=== PATIENT | female | born 1985 | race Caucasian/White ===

== ENCOUNTER 2017-10-03 20:56 | Outpatient (CLI) | payer BC ==
--- NOTE | 2017-10-04 09:29 | Ultrasound Report ---
Procedure Date: 10/03/2017 Accession Number: [id number] / [id number] Procedure: US - OB First Trimester CPT Code: FULL RESULT: EXAM: OB First Trimester DATE: 10/03/2017 9:54 PM CLINICAL HISTORY: ENCOUNTER FOR TEST, RESULT POSITIVE TECHNIQUE: Real-time scanning was performed with contact representative static images obtained. COMPARISON: None FINDINGS: The patient reports a last menstrual period of 08/03/2017. There is a single live intrauterine gestation with a heart rate of 148 BPM. The estimated sonographic gestational age is 6 weeks and 6 days. Yolk sac: 3.8 mm [place]-rump length: 9.1 mm Gestational sac: 31.3 mm Note is made of a small 0.9 x 0.8 cm. Gestational fluid collection. Right ovary measures 2.6 x 2.3 x 2.5 cm and is sonographically unremarkable. Left ovary measures 2.8 x 1.9 x 1.7 cm and is sonographically unremarkable. A small amount of free pelvic fluid is seen. IMPRESSION: Live intrauterine gestation with a sonographic age of 6 weeks and 6 days. Small perigestational fluid collection, attention on close interval follow-up.
--- NOTE | 2017-10-07 09:06 | Ultrasound Report ---
Procedure Date: 10/03/2017 Accession Number: [id number] / [id number] Procedure: US - OB Transvaginal CPT Code: FULL RESULT: EXAM: OB Transvaginal DATE: 10/03/2017 9:54 PM CLINICAL HISTORY: ENCOUNTER FOR TEST, RESULT POSITIVE TECHNIQUE: Real-time scanning was performed with admissions representative static images obtained. COMPARISON: None FINDINGS: The patient reports a last menstrual period of 08/03/2017. There is a single live intrauterine gestation with a heart rate of 148 BPM. The estimated sonographic gestational age is 6 weeks and 6 days. Yolk sac: 3.8 mm [place]-rump length: 9.1 mm Gestational sac: 31.3 mm Note is made of a small 0.9 x 0.8 cm. Gestational fluid collection. Right ovary measures 2.6 x 2.3 x 2.5 cm and is sonographically unremarkable. Left ovary measures 2.8 x 1.9 x 1.7 cm and is sonographically unremarkable. A small amount of free pelvic fluid is seen. IMPRESSION: Live intrauterine gestation with a sonographic age of 6 weeks and 6 days. Small perigestational fluid collection, attention on close interval follow-up.
== END 2017-10-03 20:57 | disposition home or self-care (01) ==
LOC: DI 20:56
PROVIDERS: ATTEND Nurse Practitioner Obstetrics & Gynecology
DX: Z32.01 Encounter for pregnancy test, result positive (principal)
CPT/HCPCS: 76801; 76817

== ENCOUNTER 2018-04-21 14:36 | Outpatient (CLI) | payer BC ==
[2018-04-22 13:35] LABS: HEPATITIS C ANTIBODY NON-REACTIVE (NON-REACTIVE); HIV AG/AB 4TH GEN NON-REACTIVE (NON-REACTIVE)
== END 2018-04-21 14:37 | disposition home or self-care (01) ==
LOC: LAB 14:36
PROVIDERS: ATTEND Registered Nurse
DX: Z34.90 Encounter for supervision of normal pregnancy, unspecified, unspecified trimester (principal)
CPT/HCPCS: 36415; 81599; 86592; 86803; 87389

== ENCOUNTER 2018-04-22 08:00 | Outpatient (CLI) | payer BC | END 2018-04-22 23:59 | disposition home or self-care (01) | LOC: LAB.R 08:00 | PROVIDERS: ATTEND Registered Nurse | DX: Z34.90 Encounter for supervision of normal pregnancy, unspecified, unspecified trimester (principal) | CPT/HCPCS: 87491; 87591; 87797 ==

== ENCOUNTER 2018-05-21 14:26 | Outpatient (CLI) | payer BC ==
[2018-05-21 14:39] VITALS: BP 111/63
== END 2018-05-21 15:14 | disposition home or self-care (01) ==
LOC: WFO 14:26 → FBP 14:28 → WFO 15:14
PROVIDERS: ATTEND Obstetrics & Gynecology
DX: O36.8190 Decreased fetal movements, unspecified trimester, not applicable or unspecified (principal); W19.XXXA Unspecified fall, initial encounter
CPT/HCPCS: 99212

== ENCOUNTER 2018-05-24 04:14 | Inpatient (IN) | payer BC ==
[2018-05-24] MEDS ORDERED: SODIUM CHLORIDE FLUSH 0.9% 10 ML SYRINGE IVP PRN (05:12)
[2018-05-24] MEDS ORDERED: LACTATED RINGERS 500 ML IV ONE ×2 (05:17→06:46)
[2018-05-24] MEDS ORDERED: LACTATED RINGERS 1,000 ML IV SCH (06:00)
[2018-05-24 06:11] LABS: BASOPHILS % (AUTO) 0.5 %; EOSINOPHILS % (AUTO) 0.6 %; LYMPHOCYTES # (AUTO) 1.4 10^3/uL (1.5-3.5); LYMPHOCYTES % (AUTO) 19.4 %; MEAN CORPUSCULAR HEMOGLOBIN 29.8 pg (27.0-31.0); MEAN CORPUSCULAR HGB CONC 34.1 g/dL (32.0-36.0); MEAN CORPUSCULAR VOLUME 87.3 fL (81.0-99.0); MEAN PLATELET VOLUME 8.2 fL (7.9-10.8); MONOCYTES # (AUTO) 0.6 10^3/uL (0.0-1.0); MONOCYTES % (AUTO) 8.2 %; NEUTROPHILS # (AUTO) 5.2 10^3/uL (1.5-6.6); NEUTROPHILS % (AUTO) 71.3 %; PLT - PLATELET COUNT 142 10^3/uL (130-450); RED CELL DISTRIBUTION WIDTH 13.6 % (12.0-15.0); WHITE BLOOD COUNT 7.3 x10^3/uL (4.8-10.8)
--- NOTE | 2018-05-24 06:16 | HISTORY & PHYSICAL EXAMINATION ---
Admit History - Visit Reason Visit Reason: Contractions - : 5 Parity: 2 Premature: 0 Ectopic: 0 : 2 Care: positive: [facility] Risk/History: positive: None Complications This : positive: None Smoking Status: Never smoker - Mother's Labs Mother's Blood Type: positive: B Mother's RH: positive: Positive GBS: positive: Group B Strep Positive Rubella Status: positive: Non-immune Review of Systems - Constitutional Constitutional: denies: Fatigue, Fever, Chills, Malaise - Eyes Eyes: denies: Pain, Blurred vision, Spots in vision, Dipolpia - Cardiovascular Cariovascular: denies: Chest pain, Edema - Respiratory Respiratory: denies: Cough, SOB at rest - Gastrointestinal Gastrointestinal: denies: Abdominal pain, Constipation, Diarrhea, Change in bowel habits, Nausea, Vomiting - Genitourinary Genitourinary: denies: Dysuria - Integumentary Integumentary: denies: Rash, Pruritis - Neurological Neurological: denies: Headache - Psychiatric Psychiatric: denies: Depression, Anxiety Physical - Abdominal Exam Vital Signs: Temp Pulse Resp BP Pulse Ox 36.5 C 80 18 127/75 100 05/24/18 04:24 05/24/18 04:24 05/24/18 04:24 05/24/18 04:24 05/24/18 04:24 Contraction Frequency (min/apart): 4 Contraction Intensity: positive: Strong Uterine Resting Tone: positive: Soft - Monitoring Heart Rate Baseline: 125 Strip Review: positive: Category I - Presentation Presentation: positive: Vertex - Vaginal Exam Membranes: positive: Membranes intact Dilation (in cm): 5 Effacement (%): 90 Station: positive: -1 - Speculum Exam Speculum Exam Performed: positive: No Plan for Labor - Plan For Labor I expect patient to be DC'd or transferred within 96 hours.: Yes Plan for Labor: HPI: This 32yo presents to [facility] on 05/24/2018 with c/o spontaneous contractions beginning at 0130 this morning. She denies VB or Lof. SVE upon arrival /-2, vertex. She was admitted to [facility] for expectant management. She has been a patient of [facility] since 34wks gestation when she transferred care. She has had a relatively uneventful other than she was followed closely for suspected IUGR and was referred to [facility] for consultation during her but told there was a dating error and they did not suspect IUGR. She had previous term vaginal deliveries of 8lb baby boys and her deliveries were complicated only by 4th degree perineal lacerations. Dating criteria: LMP unknown (estamited 08/04/2017 - DAYSI 05/11/2018) Initial U/S 10/03/17 @ 6.6wks is disconcordant with LMP dating and DAYSI 05/23/2018 OBHx: G1: 07/14/2014; 41wks; 20hr labor; ; epidural; Male G2: SAB 2014 @ 4 wks - no medication G3: SAB 2015 @ 7wks - D&C G4: 02/16/2017; 41wks, 7hr labor , epidural; male PMHx: Anemia Surgical Hx: Kidney stone removal 2015; D&C 2015 GYNHx: No Hx CYLINDER GRINDER surgeries. No STI Hx. Last pap 10/24/2017-WNL. Family Hx: Anemia-mother; Lung Cancer - grandfather Social Hx: Never smoker, no ETOH or IVDA. to Jamir labs: Blood type B+, antibody neg Hgb 11.9; Hct 35.8; PLT 243 Urine culture negative Hep B neg RPR noeg Rubella immune HIV neg GC/CT neg 28wk labs: Hgb 10.7; PLT 170 1 hour GTT 122 Antibody neg GBS negative Physical Exam: Heart RRR w/o M/G/R Lungs CTAB Abdomen gravid, soft, and nontender. Contractions palpate strong every 4 minutes with soft resting tone FHR baseline 125, moderate variability, + accels, no decels Most recent sve 5/90/-1, vertex, with intact membranes Bilateral LE's no edema Assessment: 32yo @ 40.1wks gestation by 6wk U/S GBS negative Active labor FHR Category I Plan: Admit for expectant management Anesthesia notified for placement of epidural per maternal request Plan AROM when patient comfortable with epidural for augmentation of labor. Anticipate spontaneous vaginal delivery.
--- NOTE | 2018-05-24 06:19 | ANESTHESIA ---
Pre-Anesthesia VS, & Labs - Diagnosis active labor - Procedure vaginal delivery Vital Signs: Temp Pulse Resp BP Pulse Ox 36.5 C 80 18 127/75 100 05/24/18 04:24 05/24/18 04:24 05/24/18 04:24 05/24/18 04:24 05/24/18 04:24 Height 5 ft 4 in Weight (kg) 63.503 kg - NPO Other (patient has not been npo, clear liquids) - Is Patient ?: Yes - Lab Results Current Lab Results: Laboratory Tests 05/24/18 05:33: WBC 7.3, RBC 3.70 L, Hgb 11.0 L, Hct 32.3 L, MCV 87.3, MCH 29.8, MCHC 34.1, RDW 13.6, Plt Count 142, MPV 8.2, Neut # (Auto) 5.2, Lymph # (Auto) 1.4 L, [place] # (Auto) 0.6, Eos # (Auto) 0.0, Baso # (Auto) 0.0, Absolute Nucleated RBC 0.00, Nucleated RBC % 0.0 Fish Bones: 05/24/18 05:33 Home Medications and Allergies Active Medications Lactated Ringer's (Lr) 1,000 mls @ 150 mls/hr IV .Q6H40M SUSAN Sodium Chloride (Normal Saline Flush 0.9%) 10 ml IVP PRN PRN PRN Reason: NEEDED PER PROVIDER ORDERS Sodium Chloride (Normal Saline Flush 0.9%) 10 ml IVP 0100,0900,1700 SUSAN Allergies/Adverse Reactions: Allergies Allergy/AdvReac Type Severity Reaction Status Date / Time No Known Drug Allergies Allergy Verified 05/24/18 06:18 Anes History & Medical History - Anesthetic History Anesthesia Complications: reports: No previous complications - Medical History Cardiovascular: reports: None Pulmonary: reports: None Gastrointestinal: reports: None Urinary: reports: None Neuro: reports: None Musculoskeletal: reports: None Endocrine/Autoimmune: reports: None Smoking Status: Never smoker - Surgical History General: Other (bowel repair as an infant) Exam General: Alert, Oriented x3, Cooperative, No acute distress Dental: WNL Mouth Openin Fingerbreadth Neck Mobility: Normal Mallampati classification: II Thyromental Distance: 4-6 cm Plan Anesthesia Type: Epidural (DPE) Consent for Procedure(s) Verified and Reviewed: Yes Code Status: Attempt Resuscitation ASA classification: 2-Mild systemic disease Is this case an emergency?: No
[2018-05-24] MEDS ORDERED: BUPIVACAINE 0.25% PF 10 ML VIAL ONE (06:20)
[2018-05-24] MEDS ORDERED: fent/BUPIV 2 MCG/0.125% 250 ML EP ONE (06:20)
[2018-05-24] MEDS ORDERED: fent/BUPIV 2 MCG/0.125% 250 ML EP PRN (06:46)
[2018-05-24] MEDS ORDERED: NALOXONE 0.4 MG/ML VIAL IVP PRN (06:46)
[2018-05-24] MEDS ORDERED: ONDANSETRON 4 MG/2 ML VIAL IVP PRN (06:46)
[2018-05-24] MEDS ORDERED: NALBUPHINE 10 MG/ML AMP IVP PRN (06:46)
[2018-05-24] MEDS ORDERED: ePHEDrine 50 MG/ML VIAL IVP PRN (06:46)
[2018-05-24] MEDS ORDERED: ePHEDrine 50 MG/ML VIAL IVP ONE (06:48)
--- NOTE | 2018-05-24 07:06 | PROVIDER PROGRESS NOTE ---
Labor Progress Note - Uterine Monitoring Uterine Monitoring Mode: positive: External toco Contraction Frequency (min/apart): 2-4 Contraction Intensity: positive: Strong Uterine Resting Tone: positive: Soft - Monitoring Monitor Mode: positive: External ultrasound Heart Rate Baseline: 125 Heart Rate Variability: positive: Moderate (6-25 bmp) Accelerations: positive: Present, 15x15 Decelerations: positive: None Strip Review: positive: Category I - Vaginal Exam Dilation (in cm): 7 Effacement (%): 100 Station: 0 Cervical Position: Anterior - Labor Progress Note Labor Progress Note/Additional Text: S: Patient laying in bed comfortably with epidural. She is doing well. Prior to epidural placement she was experiencing increased rectal pressure with contractions. This has started to decrease in intensity. Following placement of epidural she began to have decreased blood pressure which was asymptomatic. She denies N/V, dizziness, or light headedness. Mood is good. supportive at the bedside. O: FHR baseline 125, moderate variability, + accels, no decels. Contractions palpate strong every 2-4 minutes with soft resting tone. SVE 7/100/0, vertex. AROM 0700 - small amount of lightly meconium stained amniotic fluid. A: 32yo @ 40.1wks gestation by 6.6wk U/S Active labor FHT Category I GBS negative P: Continue expectant management Continuous monitoring Anticipate spontaneous vaginal delivery
[2018-05-24] MEDS ORDERED: SODIUM CHLORIDE FLUSH 0.9% 10 ML SYRINGE IVP SCH (09:00)
[2018-05-24] MEDS ORDERED: WITCH HAZEL/GLYCERIN 1 EACH MED..PAD TOP PRN (11:03)
[2018-05-24] MEDS ORDERED: HYDROCORTISONE 1% CREAM 28 GM TUBE PR PRN (11:03)
--- NOTE | 2018-05-24 11:14 | DELIVERY NOTE ---
Delivery Note - Labor Labor: positive: Augmented by ARM - Infant Delivery Method Delivery Method: positive: Spontaneous vaginal delivery - Presentation Presentation: positive: Vertex, KAILEY - left occiput anterior - Nuchal Cord Nuchal Cord: positive: None - Amniotic Fluid Description Amniotic Fluid Description: positive: Moderate meconium - Episiotomy Type Episiotomy Type: positive: None - Laceration Laceration: positive: 1st degree, Perineal - Suture Suture Type: positive: Vicryl Suture Size: positive: 2-0 - Delivery Outcome Delivery Outcome: positive: Livebirth - Totz : positive: Placed in direct skin contact with mother, Stimulated, Warmed, [place] used Totz sex: positive: Female - Cord Cord: positive: 3 vessels - Placenta Placenta: positive: Intact, Spontaneous - Estimated Blood Loss Estimated Blood Loss (in cc): 250 - Post Delivery Events Post Delivery Events: positive: No post delivery events - Delivery Comments (Free Text/Narrative) Delivery Comments (Free Text/Narrative): This 32yo @ 40.1wks gestation by 6.6wk U/S presented at 0500 on 05/24/2018 in active labor. Cervix was 4/80/-2 and vertex with intact membranes. FHR pattern demonstrated Category I pattern throughout labor. She received an epidural per maternal request. AROM occurred at 0658 and was noted to be a small amount of moderate meconium stained amniotic fluid. She progressed to c/c/0 at 1005. Normal of viable female on 05/24/2018 at 1030. No nuchal cord. Apgars were 9/9 at 1 and 5 minutes respectively. The was placed on maternal abdomen, stimulated, dried, and placed skin to skin. The umbilical cord was allowed to stop pulsating at which time it was doubly clamped by CNM and cut by FOB. Cord blood was obtained. Pitocin administered via IV for hemostasis. Placenta delivered spontaneously and intact at 1037. 3VC. EBL 250mL. Uterine fundus firm and there is no excessive bleeding. The perineum, vagina, and cervix were inspected and found to have 1st degree perineal laceration extending bilaterally to lower labial lacerations. Repaired using 2-[address]-1 needle in standard fashion under sterile conditions. Vaginal and rectal examination following the repair was done. Tissues well approximated. Family bonding well. Both mother and baby were left skin to skin and in stable condition.
[2018-05-24] MEDS: IBUPROFEN 800 MG TABLET PO SCH ×3 (12:47→23:46)
[2018-05-24] MEDS: ACETAMINOPHEN 500 MG TABLET PO SCH ×2 (12:48→20:50)
[2018-05-24] MEDS: DOCUSATE SODIUM 100 MG CAPSULE PO SCH (20:50)
[2018-05-25] MEDS: ACETAMINOPHEN 500 MG TABLET PO SCH ×2 (05:36→14:01)
[2018-05-25] MEDS: IBUPROFEN 800 MG TABLET PO SCH ×2 (05:37→14:01)
[2018-05-25] MEDS: DOCUSATE SODIUM 100 MG CAPSULE PO SCH (08:00)
--- NOTE | 2018-05-25 10:38 | Discharge Plan ---
Discharge Plan Disposition: 01 Home, Self Care Condition: Good Diet: Regular Activity Restrictions: No Restrictions Shower Restrictions: No Driving Restrictions: No Weight Bearing: Full Weight No Smoking: If you smoke, Please STOP! Call for help. Follow-up with: Marilyn Murillo CNM, ARNP [Provider Admit Priv/Credential] -
--- NOTE | 2018-05-25 10:42 | PROVIDER PROGRESS NOTE ---
Subjective - Subjective Subjective: FINAL PROGRESS NOTE: S: Bonding well with baby. without difficulty. Bleeding decreased and is light. Pain well controlled with oral medications. They strongly desire to go home today. supportive at the bedside. O: BP 100/69, HR 69, RR 14, T 36.5 Heart RRR w/o M/G/R, lungs CTAB, abdomen soft and nontender with fundus firm at U-1. Perineum intact with mild edema. Bilateral LE's no edema. Mood is good. A: 32yo [id number] -->P3 s/p TSVD of viable female 1st degree perineal laceration - intact P: Reviewed self care and warning s/sx. F/u in 1 week for support visit PRN. F/u in 3 week for routine visit or sooner PRN. Advised continuation of PNV while Continue ibuprofen 800mg 1 tab PO q 8 hours PRN pain. Pt and verbalized understanding and agree to above plan. They deny further questions or concerns today. Objective - Vital Signs/Intake & Output Vital Signs: Vital Signs x48h Temp Pulse Resp BP 05/25/18 08:03 36.5 C 69 14 100/69 Intake & Output: Intake & Output 05/22/18 05/23/18 05/24/18 05/25/18 23:59 23:59 23:59 23:59 Intake Total 1000 Output Total 2300 Balance -1300 - Lab Results Fish Bones: 05/24/18 05:33
[2018-05-25 14:15] VITALS: BP 104/62
--- NOTE | 2018-05-25 14:18 | Labor Flowsheet ---
Labor Flowsheet Datetime Report Generated by CPN: 05/25/2018 14:17 Datetime: 05/25/2018 13:25 VITAL SIGNS NBP Sys/Olivia/Mean (mmHg): 104 : 62 : 73 Pulse: 75 LaborFlag: Labor Datetime: 05/24/2018 11:29 Membranes Ruptured Date/Time: 05/24/2018 06:58 Datetime: 05/24/2018 10:30 UTERINE ACTIVITY Monitor Mode: External Frequency (min): 135 Quality: Strong Duration (sec): 60-80 Pattern: Normal: <= 5 Contractions in 10 Minutes Resting Tone (Palpate): Relaxed Contraction Comments: patient pushes to delivery ASSESSMENT A Monitor Mode: External US FHR Baseline Rate : 130 Variability: Moderate 6-25 bpm Accelerations: None Decelerations: Variable Category: Category II Comments: delivery of viable female infant apgars 9/9 Datetime: 05/24/2018 10:12 Actions for Decelerations: Oxygen Applied Datetime: 05/24/2018 10:05 VAGINAL EXAM Dilatation (cm): 10.0 Exam by: CNM Lidia Oxygen Amount (LPM): 10 Datetime: 05/24/2018 09:52 Communication Comments: Provider called and updated on variable declerations, unchanged SVE. Rigger Third requests for provider to come to unit for standyby. Provider states she's on her way to unit. Datetime: 05/24/2018 09:46 Vaginal Exam Comments: SVE indicated related to decelerations and patient report of increased press ure. SVE unchanged from previous exam. Datetime: 05/24/2018 09:33 Vital Sign Comments: pulse oximetry off per patient request. Datetime: 05/24/2018 09:30 Monitor Interventions for FHR: Ultrasound Adjusted Effacement (%): 100 Station: 0 Membrane Status: Ruptured Amniotic Fluid Color: Light Meconium Amniotic Fluid Amount: Small Amniotic Fluid Odor: None Vaginal Bleeding: None Datetime: 05/24/2018 09:28 Patient Position/Activity: Left Extreme Datetime: 05/24/2018 09:24 SpO2 (%): 100 Datetime: 05/24/2018 09:19 I/O Interventions: Straight Cath (ml) @ 700 Datetime: 05/24/2018 08:17 PATIENT CARE IV/Blood Work: IV bolus completed. 500cc infused. Datetime: 05/24/2018 08:11 Cervix, Consistency: Soft Cervix, Position: Midposition Datetime: 05/24/2018 07:54 ANESTHESIA Anesthesia Plans: Epidural Anesthesia Level Check: T9 Datetime: 05/24/2018 07:47 Patient Care Comments: position change to extreme right side. Datetime: 05/24/2018 07:30 PAIN Pain Scale: 4 Pain Presence: Intermittent Pain Goal: 5 Pain Relief Measures: Patient states she's aware of the PCEA option but does not feel the need to u se it at this time. Datetime: 05/24/2018 07:26 Temperature (C): 36.8 Datetime: 05/24/2018 06:58 Membranes Rupture Method: Artificial Membrane Comments: AROM by A Lidia CNM Datetime: 05/24/2018 06:51 MEDICATIONS Magnesium/Antihypertensives: Ephedrine IV (mg) @ 5 Datetime: 05/24/2018 06:31 Epidural Procedure: Loading Dose Datetime: 05/24/2018 06:29 Respirations: 18 Datetime: 05/24/2018 06:20 PROCEDURE TIME OUT Procedure Verify: Correct Patient Identity; Accurate Procedure Consent Form; Agreement on Procedure to be Done; Correct Patient Position Epidural Positioning: Sitting Datetime: 05/24/2018 06:15 COMMUNICATION Communication: Provider at Bedside
--- NOTE | 2018-05-25 15:16 | DISCHARGE SUMMARY ---
Physician: BANDAR Martínez DATE OF ADMISSION: 05/24/2018 DATE OF DISCHARGE: 05/25/2018 DIAGNOSES ON ADMISSION 1. A 32-year-old G5, P2-0-2-2, at 40.1 weeks' gestation. 2. Group B streptococcus negative. 3. Active labor. DIAGNOSES ON DISCHARGE 1. A 32-year-old G5, P3-0-2-3, status post spontaneous vaginal delivery on 05/24/2018. 2. Normal recovery. 3. . HISTORY OF PRESENT ILLNESS: This is a patient of [facility] who presented on 019 with complaints of contractions. Cervix was 4 cm dilated, 80% effaced and -2 station in a vertex position with intact membranes. She received an epidural per maternal request. AROM occurred at 0658 and was noted to be a small amount of moderate meconium stained amniotic fluid. She progres sed to spontaneously deliver a viable female infant on 05/24/2018 at 1030. Apgars were 9 and 9 at 1 and 5 minutes respectively. EBL 250 mL. The patient had a first-degree perineal laceration, which w as repaired using a 2-0 Vicryl in the usual fashion under sterile conditions. She has been doing well in her course. She is ambulating and tolerating a regular diet. She is urinating without difficulty and her lochia is normal. Her pain is well controlled with oral medications. She will be discharged home today on day #1 with instructions to continue pr enatal vitamin while and take 800 mg p.o. ibuprofen q.8 hours as needed for pain. She intends to follow up with myself at [facility] in 3 weeks for routine visi t. She has been given precautions to call if she has any worsening fevers, chills, abdominal pain, i ncreased bleeding or foul-smelling vaginal lochia. TD: 05/25/2018 10:51
== END 2018-05-25 13:30 | disposition home or self-care (01) | DRG 807 ==
LOC: WFO 04:14 → FBP 04:15 → WFO 04:55 → FBP 04:56
PROVIDERS: ADMIT Nurse Practitioner Obstetrics & Gynecology; ATTEND Nurse Practitioner Obstetrics & Gynecology
PROC: 10E0XZZ Delivery of Products of Conception, External Approach (ICD-10-PCS; principal; 2018-05-24)
PROC: 0HQ9XZZ Repair Perineum Skin, External Approach (ICD-10-PCS; 2018-05-24)
PROC: 10907ZC Drainage of Amniotic Fluid, Therapeutic from Products of Conception, Via Natural or Artificial Opening (ICD-10-PCS; 2018-05-24)
DX: O99.02 Anemia complicating childbirth (principal); Z37.0 Single live birth; Z3A.40 40 weeks gestation of pregnancy; O70.0 First degree perineal laceration during delivery; O77.0 Labor and delivery complicated by meconium in amniotic fluid
CPT/HCPCS: 85025; 99213; A9270; J7120

== ENCOUNTER 2019-10-08 08:11 | Outpatient (CLI) | payer BC ==
--- NOTE | 2019-10-08 12:33 | Ultrasound Report ---
PROCEDURE: OB First Trimester INDICATIONS: POSITIVE TEST OUTSIDE/PRIOR DATING DATA: Last menstrual period (LMP): 08/13/2019. LMP-based estimated date of delivery (DASYI): 05/19/2020. First dating scan (date and location): . Estimated date of delivery (DAYSI) from first dating scan: 05/31/2020. TECHNIQUE: Real-time scanning was performed of the fetus and maternal pelvic organs, with image documentation. COMPARISON: None FINDINGS: Embryo: Single live intrauterine is identified with crown-rump length measuring 5 mm corre sponding to 6 weeks 2 days. heart rate is identified at 123 bpm. A small focus of subchorionic hemorrhage is noted measuring 2.0 x 0.8 x 1.7 cm. Measurement variability in dating: +/- 4 weeks by LMP, +/- 7 days by mean sac diameter (use before 6 weeks gestation if crown-rump length not able to be measured), +/- 5 days by crown-rump length (6-12 weeks gestation). Maternal organs: Ovaries demonstrate right ovarian cyst measuring 1.9 x 1.2 x 1.1 cm.. Limited imag es through the kidneys demonstrate no hydronephrosis. IMPRESSION: 1. Single live intrauterine with ultrasound gestational age of 6 weeks 2 days corresponding to ultrasound DAYSI of 05/31/2020. 2. Recommend follow up study at 20-22 weeks for dates and anatomy. Reviewed by: Lucina Hartmann MD on 10/08/2019 12:31 PM PDT Approved by: Lucina Hartmann MD on 10/08/2019 12:31 PM PDT Station ID: [id number]
== END 2019-10-08 08:12 | disposition home or self-care (01) ==
LOC: DI 08:11
PROVIDERS: ATTEND Obstetrics & Gynecology
DX: Z32.01 Encounter for pregnancy test, result positive (principal)
CPT/HCPCS: 76801

== ENCOUNTER 2019-10-12 15:48 | Outpatient (CLI) | payer BC ==
[2019-10-12 16:19] LABS: HGB - HEMOGLOBIN 11.5 g/dL (12.0-16.0); MEAN CORPUSCULAR HEMOGLOBIN 29.6 pg (27.0-31.0); MEAN CORPUSCULAR HGB CONC 32.4 g/dL (32.0-36.0); MEAN CORPUSCULAR VOLUME 91.5 fL (81.0-99.0); MEAN PLATELET VOLUME 9.3 fL (7.9-10.8); RED BLOOD COUNT 3.88 10^6/uL (4.20-5.40); RED CELL DISTRIBUTION WIDTH 12.7 % (12.0-15.0); WHITE BLOOD COUNT 7.8 x10^3/uL (4.8-10.8)
--- NOTE | 2019-10-12 17:13 | Ultrasound Report ---
PROCEDURE: OB First Trimester INDICATIONS: THREATENED , ANTEPARTUM TECHNIQUE: Real-time scanning was performed of the fetus and maternal pelvic organs, with image documentation. COMPARISON: 10/08/2019 FINDINGS: Previously seen gestational sac is no longer identified. There is a tiny focal hypodense region in th e uterine fundus posteriorly which measures only 5 mm, compared with the gestational sac measuring up to 3 cm previously. There is no pole or heart tones identified, both identified previous ly. Echogenic material fills the uterine cavity. Both ovaries are normal in appearance. IMPRESSION: No evidence of viable intrauterine at this time. Previously seen gestational sac is no long er demonstrated. Previously seen pole and heart tones are likewise no longer present. Fin dings are consistent with a completed report nearly completed . Reviewed by: Nj De Guzman MD on 10/12/2019 5:12 PM PDT Approved by: Nj De Guzman MD on 10/12/2019 5:12 PM PDT Station ID: [id number]
== END 2019-10-12 15:49 | disposition home or self-care (01) ==
LOC: DI 15:48
PROVIDERS: ATTEND Obstetrics & Gynecology
DX: O20.0 Threatened abortion (principal)
CPT/HCPCS: 36415; 76801; 76817; 84702; 85027; 86900; 86901

== ENCOUNTER 2020-01-13 12:25 | Outpatient (CLI) | payer BC ==
[2020-01-13 16:56] LABS: MUDS CUTOFF CONCENTRATIONS CUTOFF CONC BELOW:
[2020-01-13 17:06] LABS: BILIRUBIN,URINE NEGATIVE (NEGATIVE); GLUCOSE, URINE (UA) NEGATIVE (NEGATIVE); KETONES,URINE (UA) NEGATIVE (NEGATIVE); LEUKOCYTE ESTERASE, URINE NEGATIVE (NEGATIVE); NITRITE,URINE NEGATIVE (NEGATIVE); OCCULT BLOOD,URINE NEGATIVE (NEGATIVE); PH,URINE 6.5 PH (5.0-7.5); PROTEIN,URINE NEGATIVE (NEGATIVE); UROBILINOGEN,URINE 0.2 (NORMAL) E.U./dL (NORMAL)
[2020-01-13 17:09] LABS: CLARITY,URINE CLEAR (CLEAR)
[2020-01-13 17:15] LABS: AMPHETAMINE SCREEN,URINE NEGATIVE (NEGATIVE); BENZODIAZEPINES SCREEN, URINE NEGATIVE (NEGATIVE); COCAINE SCREEN URINE NEGATIVE (NEGATIVE); METHADONE SCREEN, URINE NEGATIVE (NEGATIVE); METHAMPHETAMINES SCREEN, URINE NEGATIVE (NEGATIVE); OPIATE SCREEN, URINE NEGATIVE (NEGATIVE); OXYCODONE SCREEN, URINE NEGATIVE (NEGATIVE); PROPOXYPHENE SCREEN, URINE NEGATIVE (NEGATIVE); TRICYCLIC ANTIDEPRESSANT,URINE NEGATIVE (NEGATIVE)
[2020-01-13 17:21] LABS: BACTERIA,URINE Rare /HPF (None Seen); RBC,URINE None Seen /HPF (0-5); SQUAMOUS EPITHELIAL CELL,UR FEW Squamous (<= Few)
== END 2020-01-13 23:59 | disposition home or self-care (01) ==
LOC: LAB.R 12:25
PROVIDERS: ATTEND Advanced Practice Midwife
DX: Z32.01 Encounter for pregnancy test, result positive (principal)
CPT/HCPCS: 80306; 81001; 87086

== ENCOUNTER 2020-02-12 08:57 | Outpatient (CLI) | payer BC ==
--- NOTE | 2020-02-12 13:06 | Ultrasound Report ---
PROCEDURE: OB First Trimester INDICATIONS: POS PREG TEST OUTSIDE/PRIOR DATING DATA: Last menstrual period (LMP): 12/06/2019. LMP-based estimated date of delivery (DAYSI): 09/11/2020. First dating scan (date and location): 02/12/2020. Estimated date of delivery (DAYSI) from first dating scan: 09/11/2020. TECHNIQUE: Real-time scanning was performed of the fetus and maternal pelvic organs, with image documentation. COMPARISON: None FINDINGS: Embryo: The uterine fundus there is a 4.6 m gestational sac containing an embryo measuring 2.9 cm in crown-rump length. This corresponds to a composite gestational age of 9 weeks 5 days. heart ra te is measured at 185 bpm. Measurement variability in dating: +/- 4 weeks by LMP, +/- 7 days by mean sac diameter (use before 6 weeks gestation if crown-rump length not able to be measured), +/- 5 days by crown-rump length (6-12 weeks gestation). Maternal organs: Ovaries unremarkable. Limited images through the kidneys demonstrate no hydronephr osis. IMPRESSION: Single live intrauterine gestation with average ultrasound age of 9 weeks 5 days. Reviewed by: Nj De Guzman MD on 02/12/2020 12:04 PM [facility] Approved by: Nj De Guzman MD on 02/12/2020 12:04 PM [facility] Station ID: [id number]
== END 2020-02-12 08:58 | disposition home or self-care (01) ==
LOC: DI 08:57
PROVIDERS: ATTEND Advanced Practice Midwife
DX: Z32.01 Encounter for pregnancy test, result positive (principal)

== ENCOUNTER 2020-03-17 14:37 | Outpatient (CLI) | payer BC ==
[2020-03-17 15:12] LABS: BASOPHILS % (AUTO) 0.6 %; EOSINOPHILS # (AUTO) 0.4 10^3/uL (0.0-0.7); EOSINOPHILS % (AUTO) 5.1 %; HGB - HEMOGLOBIN 11.5 g/dL (12.0-16.0); LYMPHOCYTES # (AUTO) 1.8 10^3/uL (1.5-3.5); MEAN CORPUSCULAR HEMOGLOBIN 30.3 pg (27.0-31.0); MEAN CORPUSCULAR HGB CONC 33.6 g/dL (32.0-36.0); MEAN PLATELET VOLUME 9.2 fL (7.9-10.8); MONOCYTES # (AUTO) 0.3 10^3/uL (0.0-1.0); MONOCYTES % (AUTO) 4.8 %; NEUTROPHILS # (AUTO) 4.5 10^3/uL (1.5-6.6); NEUTROPHILS % (AUTO) 63.2 %; PLT - PLATELET COUNT 187 10^3/uL (130-450); RED CELL DISTRIBUTION WIDTH 13.2 % (12.0-15.0); WHITE BLOOD COUNT 7.1 x10^3/uL (4.8-10.8)
[2020-03-18 12:07] LABS: HEPATITIS C ANTIBODY NON-REACTIVE (NON-REACTIVE)
[2020-03-18 12:21] LABS: HEPATITIS B SURFACE ANTIGEN NON-REACTIVE (NON-REACTIVE)
[2020-03-18 15:14] LABS: HIV AG/AB 4TH GEN NON-REACTIVE (NON-REACTIVE)
== END 2020-03-17 14:38 | disposition home or self-care (01) ==
LOC: LAB 14:37
PROVIDERS: ATTEND Advanced Practice Midwife
DX: Z34.80 Encounter for supervision of other normal pregnancy, unspecified trimester (principal)
CPT/HCPCS: 36415; 81599; 85025; 86592; 86762; 86787; 86803; 86850; 86900; 86901; 87340; 87389

== ENCOUNTER 2020-04-20 08:00 | Outpatient (CLI) | payer BC ==
[2020-04-20 20:25] LABS: CANDIDA KRUSEI DNA NEGATIVE (NEGATIVE); TRICHOMONAS VAGINALIS DNA NEGATIVE (NEGATIVE)
[2020-04-20 20:26] LABS: CANDIDA GROUP DNA POSITIVE (NEGATIVE)
== END 2020-04-20 23:59 | disposition home or self-care (01) ==
LOC: LAB.R 08:00
PROVIDERS: ATTEND Nurse Practitioner Obstetrics & Gynecology
DX: N76.0 Acute vaginitis (principal)
CPT/HCPCS: 87661; 87801

== ENCOUNTER 2020-04-24 08:40 | Outpatient (CLI) | payer BC ==
--- NOTE | 2020-04-24 13:33 | Ultrasound Report ---
PROCEDURE: OB Detailed Eval INDICATIONS: SUPERVISION OF NORMAL OUTSIDE/PRIOR DATING DATA: Last menstrual period (LMP): 12/06/2019. LMP-based estimated date of delivery (DAYSI): 09/11/2020. First dating scan (date and location): 02/12/2020. Estimated date of delivery (DAYSI) from first dating scan: 09/11/2020. TECHNIQUE: Real-time scanning was performed of the fetus, with image documentation and biometric measurements. Endovaginal scanning: No COMPARISON: 02/12/2020 ultrasound examination FINDINGS: General: A single living intrauterine gestation is present. Presentation: Transverse Placenta: Placental position is anterior, without previa. Amniotic fluid index: 12.5 cm, 29th percentile for gestational age. heart rate: 144 beats per minute. Maternal cervical canal: 3.5 cm long; normal length is 2.5 cm or more. biometrics: Biparietal diameter: 45 mm; 19 weeks 5 days Head circumference: 177 mm; 20 weeks 1 day Abdominal circumference: 152 mm; 20 weeks 3 days Femur length: 33 mm; 20 weeks 2 days Estimated gestational age from initial scan: 20 weeks 0 days Composite gestational age from present scan: 20 weeks 1 day Estimated weight and percentile: 343 g, which is at the 62nd percentile for gestational age Measurement variability in biometric dating: +/- 10 days from 12-20 weeks gestation, +/- 2 weeks from 20-30 weeks gestation, +/- 3 weeks at 30 weeks gestation or later. Anatomic survey: Neuro: Ventricles are normal at less than 10 mm. Cisterna magna is normal at 3-11 mm. Cerebellum i s normal in size and morphology. Nuchal skin fold: Normal at less than 6 mm between 14 and 20 weeks gestational age. Face: Nose and lips, facial profile are normal. Spine: No evidence for spina bifida. Heart: 4-chambered heart is present, with normal ventricular outflow tracts. Diaphragm: Diaphragm is intact. Stomach: Left-sided stomach is present. Kidneys: No hydronephrosis. Normal is less than 5 mm in 2nd trimester, less than 7 mm in 3rd trimester. Cord: 3 vessel cord has orthotopic insertion. Bladder: Normal in size. Extremities: All 4 extremities are visualized. IMPRESSION: 1. Single living intrauterine gestation. 2. Normal survey of anatomy. Reviewed by: Veronica Ackerman MD on 04/24/2020 12:32 PM [facility] Approved by: Veronica Ackerman MD on 04/24/2020 12:32 PM [facility] Station ID: [id number]
== END 2020-04-24 08:41 | disposition home or self-care (01) ==
LOC: DI 08:40
PROVIDERS: ATTEND Advanced Practice Midwife
DX: Z34.82 Encounter for supervision of other normal pregnancy, second trimester (principal)

== ENCOUNTER 2020-06-14 13:48 | Outpatient (CLI) | payer BC ==
[2020-06-14 15:07] LABS: HCT - HEMATOCRIT 30.6 % (37.0-47.0); HGB - HEMOGLOBIN 10.1 g/dL (12.0-16.0); MEAN CORPUSCULAR HEMOGLOBIN 30.4 pg (27.0-31.0); MEAN CORPUSCULAR VOLUME 92.2 fL (81.0-99.0); MEAN PLATELET VOLUME 9.2 fL (7.9-10.8); RED BLOOD COUNT 3.32 10^6/uL (4.20-5.40); RED CELL DISTRIBUTION WIDTH 13.1 % (12.0-15.0); WHITE BLOOD COUNT 7.6 x10^3/uL (4.8-10.8)
== END 2020-06-14 13:49 | disposition home or self-care (01) ==
LOC: LAB 13:48
PROVIDERS: ATTEND Advanced Practice Midwife
DX: Z34.80 Encounter for supervision of other normal pregnancy, unspecified trimester (principal); Z36.89 Encounter for other specified antenatal screening
CPT/HCPCS: 36415; 82950; 85027

== ENCOUNTER 2020-08-16 08:00 | Outpatient (CLI) | payer BC | END 2020-08-16 23:59 | LOC: LAB.WC 08:00 | PROVIDERS: ATTEND Advanced Practice Midwife | DX: Z36.85 Encounter for antenatal screening for Streptococcus B (principal) | CPT/HCPCS: 87797 ==

== ENCOUNTER 2020-09-15 15:17 | Outpatient (CLI) | payer BC ==
[2020-09-15 15:41] VITALS: BP 115/58
--- NOTE | 2020-09-15 16:21 | PROVIDER PROGRESS NOTE ---
- HPI Chief Complaint: Decreased movement Current : Vital Signs Temperature 37.1 C 09/15/20 15:39 Heart Rate 71 09/15/20 15:39 Respiratory Rate 16 09/15/20 15:39 Blood Pressure 115/58 L 09/15/20 15:39 Temperature 37.1 C 09/15/20 15:39 Heart Rate 71 09/15/20 15:39 Respiratory Rate 16 09/15/20 15:39 Blood Pressure 115/58 L 09/15/20 15:39 O2 Saturation - Procedures OB Procedure Performed: NST Diagnosis/Indication for NST: Decreased movement Service Date of procedure: 09/15/20 - Plan Plan: S: Rdaha presents today to [facility] with c/o decreased movement. She states she is still feeling the baby move but the movements are slower and definitely less than they had been previously. O: NST performed 09/15/2020 NST read 09/15/2020 NST reactive. FHR basleine 125, moderate variability, + accels, no decels No contractions appreciated via tocometry A: 34yo @ 40.4wks gestation GBS neg FHR Category I P: Pt feels very reassured after the NST and wishes to be discharged home. Reviewed warning s/sx and when to present. Pt released home with precautions. Return for IOL 09/20/2020 @ 0730 or sooner PRN. Pt verbalized understanding and agrees to above plan. She denies further questions or concerns at this time. FINAL DIAGNOSIS: Decreased movement, third trimester
== END 2020-09-15 16:15 | disposition home or self-care (01) ==
LOC: WFO 15:17 → FBP 15:23 → WFO 16:15
PROVIDERS: ATTEND Nurse Practitioner Obstetrics & Gynecology
DX: O36.8130 Decreased fetal movements, third trimester, not applicable or unspecified (principal); Z3A.40 40 weeks gestation of pregnancy
CPT/HCPCS: 59025

== ENCOUNTER 2020-09-17 08:12 | Inpatient (IN) | payer BC ==
[2020-09-17] MEDS ORDERED: miSOPROStoL 200 MCG TABLET BC PRN (08:34)
[2020-09-17] MEDS ORDERED: LIDOCAINE-MPF 1% 30 ML VIAL ID PRN (08:34)
[2020-09-17] MEDS ORDERED: ONDANSETRON 4 MG/2 ML VIAL IVP PRN (08:34)
[2020-09-17] MEDS ORDERED: fentaNYL 100 MCG/2 ML VIAL IVP PRN (08:34)
[2020-09-17] MEDS ORDERED: TRANEXAMIC ACID IN NACL 1,000 MG/100 ML BAG IV PRN (08:34)
[2020-09-17] MEDS ORDERED: METHYLERGONOVINE 0.2 MG/ML VIAL IM PRN (08:34)
[2020-09-17] MEDS ORDERED: OXYTOCIN 10 UNIT/ML VIAL IM PRN (08:34)
[2020-09-17] MEDS ORDERED: OXYTOCIN/SODIUM CHLORIDE 500 ML IV PRN (08:34)
[2020-09-17] MEDS ORDERED: METOCLOPRAMIDE 10 MG/2 ML VIAL IVP PRN (08:34)
[2020-09-17] MEDS ORDERED: CARBOPROST TROMETHAMINE 250 MCG/ML AMP IM PRN (08:34)
[2020-09-17] MEDS ORDERED: SODIUM CHLORIDE FLUSH 0.9% 10 ML SYRINGE IVP PRN (08:34)
[2020-09-17] MEDS: LACTATED RINGERS 1,000 ML IV SCH ×2 (08:45→12:15)
[2020-09-17] MEDS ORDERED: ROPIVACAINE 0.2% 200 MG/100 ML BAG EP ONE (08:59)
[2020-09-17] MEDS ORDERED: ACETAMINOPHEN 325 MG TABLET PO SCH (09:00)
[2020-09-17 09:19] LABS: BASOPHILS # (AUTO) 0.1 10^3/uL (0.0-0.1); BASOPHILS % (AUTO) 0.7 %; EOSINOPHILS # (AUTO) 0.2 10^3/uL (0.0-0.7); EOSINOPHILS % (AUTO) 1.7 %; HCT - HEMATOCRIT 33.1 % (37.0-47.0); HGB - HEMOGLOBIN 10.3 g/dL (12.0-16.0); LYMPHOCYTES # (AUTO) 1.4 10^3/uL (1.5-3.5); LYMPHOCYTES % (AUTO) 15.7 %; MEAN CORPUSCULAR HEMOGLOBIN 26.7 pg (27.0-31.0); MEAN CORPUSCULAR HGB CONC 31.1 g/dL (32.0-36.0); MEAN CORPUSCULAR VOLUME 85.8 fL (81.0-99.0); MEAN PLATELET VOLUME 11.4 fL (7.9-10.8); MONOCYTES # (AUTO) 0.6 10^3/uL (0.0-1.0); MONOCYTES % (AUTO) 7.1 %; NEUTROPHILS # (AUTO) 6.7 10^3/uL (1.5-6.6); NEUTROPHILS % (AUTO) 73.8 %; PLT - PLATELET COUNT 170 10^3/uL (130-450); RED BLOOD COUNT 3.86 10^6/uL (4.20-5.40); RED CELL DISTRIBUTION WIDTH 13.6 % (12.0-15.0)
[2020-09-17] MEDS ORDERED: ePHEDrine 50 MG/ML VIAL IVP PRN (10:16)
[2020-09-17] MEDS ORDERED: ROPIVACAINE 0.2% 200 MG/100 ML BAG EP PRN (10:16)
[2020-09-17] MEDS ORDERED: NALOXONE 0.4 MG/ML VIAL IVP PRN (10:16)
--- NOTE | 2020-09-17 10:22 | ANESTHESIA ---
Pre-Anesthesia VS, & Labs - Diagnosis active labor - Procedure vaginal delivery Vital Signs: Temp Pulse Resp BP Pulse Ox 36.9 C 74 16 112/68 09/17/20 09:17 09/17/20 09:17 09/17/20 09:17 09/17/20 09:17 Height: 5 ft 4 in Weight (kg): 68.039 kg Body Mass Index: 25.7 BMI Classification: Overweight - NPO Other (labor, clear liquids) - Is Patient ?: Yes - Lab Results Current Lab Results: Laboratory Tests 09/17/20 09:05: WBC 9.0, RBC 3.86 L, Hgb 10.3 L, Hct 33.1 L, MCV 85.8, MCH 26.7 L, MCHC 31.1 L, RDW 13.6, Plt Count 170, MPV 11.4 H, Neut # (Auto) 6.7 H, Lymph # (Auto) 1.4 L, [place] # (Auto) 0.6, Eos # (Auto) 0.2, Baso # (Auto) 0.1, Absolute Nucleated RBC 0.00, Nucleated RBC % 0.0 Fish Bones: 09/17/20 09:05 Home Medications and Allergies Active Medications Acetaminophen (Acetaminophen 325 Mg Tablet) 650 mg PO Q6H SUSAN Carboprost Tromethamine (Carboprost Tromethamine 250 Mcg/Ml Amp) 250 mcg IM Q15M PRN PRN Reason: Step 4: Hemorrhage protocol Stop: 09/22/20 08:34 Fentanyl (Fentanyl 100 Mcg/2 Ml Vial) 50 mcg IVP Q1H PRN PRN Reason: PAIN Oxytocin/Sodium Chloride (Pitocin/Sodium Chloride) 500 mls @ 999 mls/hr IV PRN PRN; Protocol PRN Reason: POST- HEMORR PREVENTION Stop: 09/22/20 08:34 Tranexamic Acid (Tranexamic 1,000 Mg/100ml-Nacl) 1,000 mg in 100 mls @ 600 mls/hr IV .ONCE PRN PRN Reason: EBL >1200mL and within 3hr Stop: 09/22/20 08:34 Lactated Ringer's (Lr) 1,000 mls @ 150 mls/hr IV .Q6H40M SUSAN Lidocaine HCl (Lidocaine-Mpf 1% 30 Ml Vial) 30 ml ID .ONCE PRN PRN Reason: PERINEAL REPAIR Stop: 09/22/20 08:34 Methylergonovine Maleate (Methylergonovine 0.2 Mg/Ml Vial) 0.2 mg IM .ONCE PRN PRN Reason: Step 2: Hemorrhage protocol Stop: 09/22/20 08:34 Metoclopramide HCl (Metoclopramide 10 Mg/2 Ml Vial) 10 mg IVP Q6H PRN PRN Reason: Nausea / Vomiting Misoprostol (Misoprostol 200 Mcg Tablet) 800 mcg BC .ONCE PRN PRN Reason: Step 3: Hemorrhage protocol Stop: 09/22/20 08:34 Ondansetron HCl (Ondansetron 4 Mg/2 Ml Vial) 4 mg IVP Q4H PRN PRN Reason: Nausea / Vomiting Oxytocin (Oxytocin 10 Unit/Ml Vial) 10 unit IM .ONCE PRN PRN Reason: Step one: If no IV access Stop: 09/22/20 08:34 Sodium Chloride (Sodium Chloride Flush 0.9% 10 Ml Syringe) 10 ml IVP PRN PRN PRN Reason: NEEDED PER PROVIDER ORDERS Sodium Chloride (Sodium Chloride Flush 0.9% 10 Ml Syringe) 10 ml IVP 0100,0900,1700 SUSAN Allergies/Adverse Reactions: Allergies Allergy/AdvReac Type Severity Reaction Status Date / Time No Known Drug Allergies Allergy Verified 05/24/18 06:18 Anes History & Medical History - Anesthetic History Anesthesia Complications: reports: No previous complications - Medical History Cardiovascular: reports: None Pulmonary: reports: None Gastrointestinal: reports: None Urinary: reports: None Neuro: reports: None Musculoskeletal: reports: None Endocrine/Autoimmune: reports: None Blood Disorders: reports: None Skin: reports: None Smoking Status: Never smoker Psychosocial: reports: No issues indicated - Surgical History General: reports: Other (bowel repair as an ) Urologic: reports: Kidney stents (ureteral stents during first ) Exam General: Alert, Oriented x3, Cooperative, No acute distress Dental: WNL Mouth Openin Fingerbreadth Neck Mobility: Normal Mallampati classification: II Thyromental Distance: 4-6 cm Mental/Cognitive Status: Alert/Oriented X3, Normal for patient Plan Anesthesia Type: Epidural Consent for Procedure(s) Verified and Reviewed: Yes Code Status: Attempt Resuscitation ASA classification: 2-Mild systemic disease Is this case an emergency?: No
--- NOTE | 2020-09-17 10:36 | HISTORY & PHYSICAL EXAMINATION ---
Admit History - Visit Reason Visit Reason: Contractions (Patient called and stated she was having contractions every 10 minutes. Patient told to come in and was found to be ata every 4 min.) - : 7 Parity: 3 : 3 Risk/History: positive: None Complications This : positive: None Smoking Status: Never smoker - Mother's Labs Mother's Blood Type: positive: B Mother's RH: positive: Positive GBS: positive: Group B Step Negative Rubella Status: positive: Immune - Other Maternal History Other Maternal History: Patient is 34you at 40 6/7 weeks with good care with [facility]. Last Delivery with Marilyn Murillo CNM. Patient had initial ultrasound on02/22/2020 at 9.5 weeks with EDC of 09/11/2020 that is consistent with LMP. Patient has had excellent care. 3 Prior 's 8#2oz was largest and first. Meds/Allgy - Allergies Allergies/Adverse Reactions: Allergies Allergy/AdvReac Type Severity Reaction Status Date / Time No Known Drug Allergies Allergy Verified 05/24/18 06:18 Physical - Abdominal Exam Vital Signs: Temp Pulse Resp BP Pulse Ox 98.4 F 74 16 112/68 09/17/20 09:17 09/17/20 09:17 09/17/20 09:17 09/17/20 09:17
[2020-09-17] MEDS ORDERED: fentaNYL 100 MCG/2 ML VIAL ONE (10:39)
[2020-09-17] MEDS ORDERED: LIDOCAINE-MPF 1% 30 ML VIAL ONE (10:39)
--- NOTE | 2020-09-17 12:52 | PROVIDER PROGRESS NOTE ---
Subjective - Prog Note Date Prog Note Date: 09/17/20 Prog Note Time: 12:48 - Subjective Pt reports feeling: No change (Patient is feeling a little pressure. Patient is not feeling pain with contractions.) Objective - Vital Signs/Intake & Output Vital Signs: Vital Signs x48h Temp Pulse Pulse Resp BP BP 09/17/20 09:17 98.4 F 74 16 112/68 09/17/20 08:20 98.1 F 73 20 134/87 H Intake & Output: Intake & Output 09/14/20 09/15/20 09/16/20 09/17/20 23:59 23:59 23:59 23:59 Intake Total 1500 Balance 1500 - Lab Results Fish Bones: 09/17/20 09:05 Other Labs: Lab Results x24hrs 09/17/20 09/17/20 Range/Units 09:50 09:05 WBC 9.0 (4.8-10.8) x10^3/uL RBC 3.86 L (4.20-5.40) 10^6/uL Hgb 10.3 L (12.0-16.0) g/dL Hct 33.1 L (37.0-47.0) % MCV 85.8 (81.0-99.0) fL MCH 26.7 L (27.0-31.0) pg MCHC 31.1 L (32.0-36.0) g/dL RDW 13.6 (12.0-15.0) % Plt Count 170 (130-450) 10^3/uL MPV 11.4 H (7.9-10.8) fL Neut # (Auto) 6.7 H (1.5-6.6) 10^3/uL Lymph # (Auto) 1.4 L (1.5-3.5) 10^3/uL [place] # (Auto) 0.6 (0.0-1.0) 10^3/uL Eos # (Auto) 0.2 (0.0-0.7) 10^3/uL Baso # (Auto) 0.1 (0.0-0.1) 10^3/uL Absolute Nucleated RBC 0.00 x10^3/uL Nucleated RBC % 0.0 /100WBC Blood Type B POSITIVE Antibody Screen NEGATIVE - Other Results/Comments Other Results/Comments: CX: 9cm/100/1+, forebag present and AROM performed. Meconium still present. Monitor 130 with moderate variability, Having occasional variables with Contractions. Category II monitor strip. A- Continue to monitor. 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
--- NOTE | 2020-09-17 13:22 | PROVIDER PROGRESS NOTE ---
Subjective - Prog Note Date Prog Note Date: 09/17/20 - Subjective Pt reports feeling: No change (Patient is comfortable with epidural.) Objective - Vital Signs/Intake & Output Vital Signs: Vital Signs x48h Temp Pulse Pulse Resp BP BP 09/17/20 09:17 98.4 F 74 16 112/68 09/17/20 08:20 98.1 F 73 20 134/87 H Intake & Output: Intake & Output 09/14/20 09/15/20 09/16/20 09/17/20 23:59 23:59 23:59 23:59 Intake Total 1500 Balance 1500 - Lab Results Fish Bones: 09/17/20 09:05 Other Labs: Lab Results x24hrs 09/17/20 09/17/20 Range/Units 09:50 09:05 WBC 9.0 (4.8-10.8) x10^3/uL RBC 3.86 L (4.20-5.40) 10^6/uL Hgb 10.3 L (12.0-16.0) g/dL Hct 33.1 L (37.0-47.0) % MCV 85.8 (81.0-99.0) fL MCH 26.7 L (27.0-31.0) pg MCHC 31.1 L (32.0-36.0) g/dL RDW 13.6 (12.0-15.0) % Plt Count 170 (130-450) 10^3/uL MPV 11.4 H (7.9-10.8) fL Neut # (Auto) 6.7 H (1.5-6.6) 10^3/uL Lymph # (Auto) 1.4 L (1.5-3.5) 10^3/uL Lane # (Auto) 0.6 (0.0-1.0) 10^3/uL Eos # (Auto) 0.2 (0.0-0.7) 10^3/uL Baso # (Auto) 0.1 (0.0-0.1) 10^3/uL Absolute Nucleated RBC 0.00 x10^3/uL Nucleated RBC % 0.0 /100WBC Blood Type B POSITIVE Antibody Screen NEGATIVE - Other Results/Comments Other Results/Comments: CX: 9.5m cervix from 6-2, none from 2 -6. 100%, 1+ station. Monitor strip is Category II with Moderate variability and variable decelerations, most early in timing, with contractions. Contractions every 1- 2min. A- IUP 40 08/01, Meconium P- Anticipate vaginal Delivery.
[2020-09-17] MEDS ORDERED: ONDANSETRON ODT 4 MG TABLET TL PRN (14:27)
[2020-09-17] MEDS ORDERED: WITCH HAZEL/GLYCERIN 1 PAD TOP PRN (14:27)
[2020-09-17] MEDS ORDERED: HYDROCORTISONE 1% CREAM 28 GM TUBE PR PRN (14:27)
--- NOTE | 2020-09-17 14:37 | DELIVERY NOTE ---
Delivery Note - Infant Delivery Method Infant Delivery Method: positive: Spontaneous vaginal delivery - Presentation Presentation: positive: Vertex, OA - occiput anterior - Nuchal Cord Nuchal Cord: positive: Present (Loose Nuchal cord times two, reduced over infant's head.) - Anesthetic Anesthetic Type: - Amniotic Fluid Description Amniotic Fluid Description: positive: Moderate meconium - Episiotomy Type Episiotomy Type: positive: None - Laceration Laceration: positive: None, 2nd degree - Suture Suture Type: positive: Vicryl Suture Size: positive: 3-0 - Delivery Outcome Delivery Outcome: positive: Livebirth - [place] : positive: Placed in direct skin contact with mother, Bulb syringe [place] sex: positive: Female : Apgars 9/9 - Cord Cord: positive: 3 vessels - Placenta Placenta: positive: Intact, Spontaneous - Estimated Blood Loss Estimated Blood Loss (in cc): 200 - Post Delivery Events Post Delivery Events: positive: No post delivery events - Delivery Comments (Free Text/Narrative) Delivery Comments (Free Text/Narrative): Patient is 34 you at 40 6/7 weeks by early Ultrasound and LMP. Patient presented to labor and delivery in active labor. Patient was 4cm on admission. Patient had epidural anesthesia placed. Patient continued to labor and progre ss. Patient had SROM with Moderate Meconium present. Patient was 7cm at that time. Patient progressed in a normal fashion. Patient became complete. Patient was placed in proper position and pulled her legs back. Patient grunted twice with one contractions and spontaneous delivery of 's head in OA position occurred. Two nuchal cords were easily reduced over the infants head. Maternal forces delivered shoulders under pubic bone and remainder of delivered spontaneously. Infant was placed on mother's abdomen and Dr. Langford was in room to assess . Living female with Apgars of 9/9. Cord blood was obtained. Pitocin was started in IV. Placenta delivered spontaneously, Intact, MATT present. Cervix was inspected and found to be intact. There was a second degree laceration to left of midline perineum. Appears to have torn along her old scar. 3-0 Vicryl in a two layer, subcuticular fashion was utilized to repair the laceration. Good hemostasis and approxomation were obtained. EBL is 200cc. Sponge, needle and instrument counts were correct. Infant and mother appear to be in stable condition and is breast feeding.
[2020-09-17] MEDS: ACETAMINOPHEN 500 MG TABLET PO SCH ×2 (15:04→23:00)
[2020-09-17] MEDS: IBUPROFEN 600 MG TABLET PO SCH ×2 (15:04→20:56)
[2020-09-17] MEDS: DOCUSATE SODIUM 100 MG CAPSULE PO SCH (20:56)
[2020-09-18] MEDS: ACETAMINOPHEN 500 MG TABLET PO SCH ×2 (00:23→08:09)
[2020-09-18] MEDS: LACTATED RINGERS 1,000 ML IV SCH ×3 (01:23→01:30)
[2020-09-18] MEDS: SODIUM CHLORIDE FLUSH 0.9% 10 ML SYRINGE IVP SCH ×3 (01:24→01:30)
[2020-09-18] MEDS: IBUPROFEN 600 MG TABLET PO SCH ×3 (02:24→14:18)
[2020-09-18 06:56] LABS: BASOPHILS # (AUTO) 0.1 10^3/uL (0.0-0.1); BASOPHILS % (AUTO) 0.7 %; EOSINOPHILS # (AUTO) 0.1 10^3/uL (0.0-0.7); EOSINOPHILS % (AUTO) 1.5 %; HCT - HEMATOCRIT 30.1 % (37.0-47.0); HGB - HEMOGLOBIN 9.3 g/dL (12.0-16.0); LYMPHOCYTES # (AUTO) 1.9 10^3/uL (1.5-3.5); LYMPHOCYTES % (AUTO) 20.9 %; MEAN CORPUSCULAR HEMOGLOBIN 26.6 pg (27.0-31.0); MEAN CORPUSCULAR HGB CONC 30.9 g/dL (32.0-36.0); MEAN PLATELET VOLUME 10.3 fL (7.9-10.8); MONOCYTES # (AUTO) 0.8 10^3/uL (0.0-1.0); MONOCYTES % (AUTO) 8.6 %; NEUTROPHILS # (AUTO) 6.2 10^3/uL (1.5-6.6); NEUTROPHILS % (AUTO) 67.5 %; PLT - PLATELET COUNT 129 10^3/uL (130-450); RED CELL DISTRIBUTION WIDTH 13.7 % (12.0-15.0); WHITE BLOOD COUNT 9.2 x10^3/uL (4.8-10.8)
[2020-09-18] MEDS: DOCUSATE SODIUM 100 MG CAPSULE PO SCH (08:09)
[2020-09-18 10:56] VITALS: BP 108/67
--- NOTE | 2020-09-18 12:21 | DISCHARGE SUMMARY ---
"Discharge Summary Admit Date: 09/17/20 Discharge Date: 09/18/20 Discharging Provider: Sarahi Rogers DO Code Status: Attempt Resuscitation Condition at Discharge: Good Discharge Disposition: 01 Home, Self Care - DIAGNOSES Admission Diagnoses: IUP 40 6/7, Active labor. Discharge Diagnoses with Status of Each Condition: S/P with repair of perineal laceration. Anemia - HPI History of Present Illness: 34yo at 40 6/7 weeks presented to labor and delivery in active labor. Patient was admitted and had Epidural anesthesia placed. Patient progressed in labor and had SROM with Meconium present. Patient had with second degree laceration of perineum. Patient has had uneventful course. Patient continues to have Anemia. Patient desires to be discharged to home today. - CONSULTS | PROCEDURES Procedures: Epidural Anesthesia placed in labor. Normal spontaneous vaginal delivery with repair of second degree perineal laceration. - HOSPITAL COURSE Hospital Course: Patient presented in active labor. Had epidural anesthesia placed. Patient had SROM with Moderate Meconium present. Patient had with second degree laceration that was repaired. Patient had living female, Kaylee, with Apgars of 9/9. Double nuchal cord present at delivery. Patient had uncomplicated course. Patient remains anemic in period. She was anemic in third trimester. Patient is being discharged to home with regular diet, pelvic rest, Motrin and Tylenol for pain. Patient will follow-up in one week in the clinic for visit. - ALLERGIES Allergies/Adverse Reactions: Allergies Allergy/AdvReac Type Severity Reaction Status Date / Time No Known Drug Allergies Allergy Verified 05/24/18 06:18 - PHYSICAL EXAM AT DISCHARGE General Appearance: positive: No acute distress Eyes Bilateral: positive: Normal inspection ENT: positive: ENT inspection nml Neck: positive: Nml inspection Respiratory: positive: No respiratory distress, Breath sounds nml Cardiovascular: positive: Regular rate & rhythm, No murmur, No gallop Abdomen: positive: Non-tender, Nml bowel sounds, Other (Uterus is firm at at umbilicus.) Skin: positive: Color nml Extremities: positive: Non-tender, Nml appearance, No pedal edema Neurologic/Psychiatric: positive: Oriented x3, Mood/affect nml Reflexes: Knee (R): 2+ - LABS Result Diagrams: 09/18/20 06:45 - QUALITY (Female Hip Fx Only) Was patient sent home on osteoporosis medication?: No - FOLLOW UP Follow Up: One week in clinic for visit. - TIME SPENT Time Spent in Discharge (Minutes): 30"
== END 2020-09-18 14:45 | disposition home or self-care (01) | DRG 807 ==
LOC: WFO 08:12 → FBP 08:15 → WFO 08:33 → FBP 08:34
PROVIDERS: ADMIT Obstetrics & Gynecology; ATTEND Obstetrics & Gynecology
PROC: 10E0XZZ Delivery of Products of Conception, External Approach (ICD-10-PCS; principal; 2020-09-17)
PROC: 0KQM0ZZ Repair Perineum Muscle, Open Approach (ICD-10-PCS; 2020-09-17)
PROC: 10907ZC Drainage of Amniotic Fluid, Therapeutic from Products of Conception, Via Natural or Artificial Opening (ICD-10-PCS; 2020-09-17)
DX: O70.1 Second degree perineal laceration during delivery (principal); Z37.0 Single live birth; O69.81X0 Labor and delivery complicated by cord around neck, without compression, not applicable or unspecified; O77.0 Labor and delivery complicated by meconium in amniotic fluid; Z3A.40 40 weeks gestation of pregnancy; O99.013 Anemia complicating pregnancy, third trimester
CPT/HCPCS: 36415; 85025; 86850; 86900; 86901; A9270; J7120; 99213

== ENCOUNTER 2020-12-06 07:00 | Outpatient (CLI) | payer BC ==
[2020-12-06 22:18] LABS: BACTERIAL VAGINOSIS DNA NEGATIVE (NEGATIVE); CANDIDA GLABRATA DNA NEGATIVE (NEGATIVE); CANDIDA GROUP DNA POSITIVE (NEGATIVE); CANDIDA KRUSEI DNA NEGATIVE (NEGATIVE); TRICHOMONAS VAGINALIS DNA NEGATIVE (NEGATIVE)
== END 2020-12-06 23:59 | disposition home or self-care (01) ==
LOC: LAB 07:00
PROVIDERS: ATTEND Nurse Practitioner Obstetrics & Gynecology
DX: N89.8 Other specified noninflammatory disorders of vagina (principal)
CPT/HCPCS: 87661; 87801

== ENCOUNTER 2021-06-16 08:00 | Outpatient (CLI) | payer BC ==
[2021-06-16 19:52] LABS: BACTERIAL VAGINOSIS DNA NEGATIVE (NEGATIVE); CANDIDA GLABRATA DNA NEGATIVE (NEGATIVE); CANDIDA GROUP DNA POSITIVE (NEGATIVE); CANDIDA KRUSEI DNA NEGATIVE (NEGATIVE); TRICHOMONAS VAGINALIS DNA NEGATIVE (NEGATIVE)
== END 2021-06-16 23:59 | disposition home or self-care (01) ==
LOC: LAB 08:00
PROVIDERS: ATTEND Obstetrics & Gynecology
DX: L29.8 Other pruritus (principal)
CPT/HCPCS: 81514

== ENCOUNTER 2022-01-26 08:00 | Outpatient (CLI) | payer BC ==
[2022-01-26 22:53] LABS: BACTERIAL VAGINOSIS DNA NEGATIVE (NEGATIVE); CANDIDA GLABRATA DNA NEGATIVE (NEGATIVE); CANDIDA GROUP DNA NEGATIVE (NEGATIVE); CANDIDA KRUSEI DNA NEGATIVE (NEGATIVE); TRICHOMONAS VAGINALIS DNA NEGATIVE (NEGATIVE)
== END 2022-01-26 23:59 | disposition home or self-care (01) ==
LOC: LAB.WC 08:00
PROVIDERS: ATTEND Nurse Practitioner
DX: L29.8 Other pruritus (principal)
CPT/HCPCS: 81514

== ENCOUNTER 2022-04-05 13:30 | Outpatient (CLI) | payer BC ==
[2022-04-05 13:42] LABS: BASOPHILS % (AUTO) 0.3 %; EOSINOPHILS # (AUTO) 0.1 10^3/uL (0.0-0.7); EOSINOPHILS % (AUTO) 1.3 %; HCT - HEMATOCRIT 37.9 % (37.0-47.0); HGB - HEMOGLOBIN 12.4 g/dL (12.0-16.0); LYMPHOCYTES # (AUTO) 1.8 10^3/uL (1.5-3.5); LYMPHOCYTES % (AUTO) 25.9 %; MEAN CORPUSCULAR HEMOGLOBIN 28.8 pg (27.0-31.0); MEAN CORPUSCULAR HGB CONC 32.7 g/dL (32.0-36.0); MEAN CORPUSCULAR VOLUME 88.1 fL (81.0-99.0); MEAN PLATELET VOLUME 9.2 fL (7.9-10.8); MONOCYTES # (AUTO) 0.4 10^3/uL (0.0-1.0); MONOCYTES % (AUTO) 5.8 %; NEUTROPHILS # (AUTO) 4.7 10^3/uL (1.5-6.6); NEUTROPHILS % (AUTO) 66.4 %; PLT - PLATELET COUNT 203 10^3/uL (130-450); RED CELL DISTRIBUTION WIDTH 13.4 % (12.0-15.0); WHITE BLOOD COUNT 7.1 x10^3/uL (4.8-10.8)
[2022-04-06 06:10] LABS: HIV SCREEN 4TH GENERATION Non Reactive (Non Reactive)
[2022-04-06 07:10] LABS: HCV AB <0.1 s/co ratio (0.0-0.9)
[2022-04-07 02:08] LABS: HBsAG SCREEN Negative (Negative)
[2022-04-07 04:09] LABS: RPR Non Reactive (Non Reactive)
[2022-04-07 09:09] LABS: VARICELLA-ZOSTER AB IGG 561 index (Immune >165)
== END 2022-04-05 13:31 | disposition home or self-care (01) ==
LOC: LAB 13:30
PROVIDERS: ATTEND Nurse Practitioner Obstetrics & Gynecology
DX: Z36.89 Encounter for other specified antenatal screening (principal)
CPT/HCPCS: 36415; 85025; 86592; 86762; 86787; 86803; 86850; 86900; 86901; 87340; 87389

== ENCOUNTER 2022-05-14 20:23 | Outpatient (CLI) | payer BC ==
--- NOTE | 2022-05-15 16:55 | Ultrasound Report ---
PROCEDURE: OB Detailed Eval INDICATIONS: SUPERVISION OF NORMAL OUTSIDE/PRIOR DATING DATA: Last menstrual period (LMP): 12/27/2021. LMP-based estimated date of delivery (DAYSI): 10/03/2022. First dating scan (date and location): 03/06/2022. Estimated date of delivery (DAYSI) from first dating scan: 09/27/2022. TECHNIQUE: Real-time scanning was performed of the fetus, with image documentation and biometric measurements. Endovaginal scanning: No COMPARISON: None. FINDINGS: General: A single living intrauterine gestation is present. Presentation: Vertex Placenta: Placental position is anterior, without previa. Amniotic fluid index: 13.4 cm heart rate: 140 beats per minute. Maternal cervical canal: Closed biometrics: Biparietal diameter: 48 mm; 20 weeks 4 days Head circumference: 183 mm; 20 weeks 5 days Abdominal circumference: 156 mm; 20 weeks 5 days Femur length: 34 mm; 20 weeks 5 days Estimated gestational age from initial scan: 20 weeks 4 days Composite gestational age from present scan: 20 weeks 6 days Estimated weight and percentile: 372 g, 53rd percentile for gestational age Measurement variability in biometric dating: +/- 10 days from 12-20 weeks gestation, +/- 2 weeks from 20-30 weeks gestation, +/- 3 weeks at 30 weeks gestation or later. Anatomic survey: Neuro: Ventricles are normal at less than 10 mm. Cisterna magna is normal at 3-11 mm. Cerebellum i s normal in size and morphology. Nuchal skin fold: Normal at less than 6 mm between 14 and 20 weeks gestational age. Face: Nose and lips, facial profile are normal. Spine: No evidence for spina bifida. Heart: 4-chambered heart is present, with normal ventricular outflow tracts. Diaphragm: Diaphragm is intact. Stomach: Left-sided stomach is present. Kidneys: No hydronephrosis. Normal is less than 5 mm in 2nd trimester, less than 7 mm in 3rd trimester. Cord: 3 vessel cord has orthotopic insertion. Bladder: Normal in size. Extremities: All 4 extremities are visualized. IMPRESSION: 1. Single living intrauterine gestation. 2. Normal survey of anatomy. Reviewed by: Veronica Ackerman MD on 05/15/2022 4:54 PM PDT Approved by: Veronica Ackerman MD on 05/15/2022 4:54 PM [facility] Station ID: [id number]
== END 2022-05-14 20:24 | disposition home or self-care (01) ==
LOC: DI 20:23
PROVIDERS: ATTEND Nurse Practitioner Obstetrics & Gynecology
DX: Z34.92 Encounter for supervision of normal pregnancy, unspecified, second trimester (principal); Z36.89 Encounter for other specified antenatal screening

== ENCOUNTER 2022-07-09 14:59 | Outpatient (CLI) | payer BC ==
[2022-07-09 16:13] LABS: HCT - HEMATOCRIT 30.4 % (37.0-47.0); HGB - HEMOGLOBIN 9.9 g/dL (12.0-16.0); MEAN CORPUSCULAR HEMOGLOBIN 29.5 pg (27.0-31.0); MEAN CORPUSCULAR HGB CONC 32.6 g/dL (32.0-36.0); MEAN CORPUSCULAR VOLUME 90.5 fL (81.0-99.0); MEAN PLATELET VOLUME 9.5 fL (7.9-10.8); RED BLOOD COUNT 3.36 10^6/uL (4.20-5.40); RED CELL DISTRIBUTION WIDTH 13.2 % (12.0-15.0); WHITE BLOOD COUNT 8.1 x10^3/uL (4.8-10.8)
== END 2022-07-09 15:00 | disposition home or self-care (01) ==
LOC: LAB 14:59
PROVIDERS: ATTEND Nurse Practitioner Obstetrics & Gynecology
DX: Z36.9 Encounter for antenatal screening, unspecified (principal)
CPT/HCPCS: 36415; 82950; 85027

== ENCOUNTER 2022-07-17 14:33 | Outpatient (CLI) | payer BC ==
[2022-07-17] MEDS ORDERED: FERRIC GLUCONATE 125 MG in SODIUM CHLORIDE 0.9% 100ML 100 ML IV ONE (15:00)
[2022-07-17 15:14] VITALS: BP 112/71
== END 2022-07-17 16:48 | disposition home or self-care (01) ==
LOC: WFO 14:33 → FBP 14:36 → WFO 16:48
PROVIDERS: ATTEND Nurse Practitioner Obstetrics & Gynecology
DX: O99.013 Anemia complicating pregnancy, third trimester (principal); Z3A.00 Weeks of gestation of pregnancy not specified
CPT/HCPCS: 96365; J2916

== ENCOUNTER 2022-08-30 11:19 | Outpatient (CLI) | payer BC ==
[2022-08-30 11:37] LABS: BASOPHILS % (AUTO) 0.4 %; EOSINOPHILS # (AUTO) 0.1 10^3/uL (0.0-0.7); EOSINOPHILS % (AUTO) 0.9 %; HCT - HEMATOCRIT 31.8 % (37.0-47.0); HGB - HEMOGLOBIN 10.5 g/dL (12.0-16.0); LYMPHOCYTES # (AUTO) 1.3 10^3/uL (1.5-3.5); LYMPHOCYTES % (AUTO) 23.1 %; MEAN CORPUSCULAR HEMOGLOBIN 29.4 pg (27.0-31.0); MEAN CORPUSCULAR VOLUME 89.1 fL (81.0-99.0); MEAN PLATELET VOLUME 9.7 fL (7.9-10.8); MONOCYTES # (AUTO) 0.5 10^3/uL (0.0-1.0); MONOCYTES % (AUTO) 8.1 %; NEUTROPHILS # (AUTO) 3.7 10^3/uL (1.5-6.6); NEUTROPHILS % (AUTO) 66.6 %; PLT - PLATELET COUNT 139 10^3/uL (130-450); RED BLOOD COUNT 3.57 10^6/uL (4.20-5.40); RED CELL DISTRIBUTION WIDTH 13.5 % (12.0-15.0); WHITE BLOOD COUNT 5.5 x10^3/uL (4.8-10.8)
== END 2022-08-30 11:20 | disposition home or self-care (01) ==
LOC: LAB 11:19
PROVIDERS: ATTEND Nurse Practitioner Obstetrics & Gynecology
DX: Z36.9 Encounter for antenatal screening, unspecified (principal)
CPT/HCPCS: 36415; 82950; 85025

== ENCOUNTER 2022-09-28 15:15 | Inpatient (IN) | payer BC ==
[2022-09-28] MEDS ORDERED: OXYTOCIN/SODIUM CHLORIDE 500 ML IV PRN (15:21)
[2022-09-28] MEDS ORDERED: miSOPROStoL 200 MCG TABLET BC PRN (15:21)
[2022-09-28] MEDS ORDERED: SODIUM CHLORIDE FLUSH 0.9% 10 ML SYRINGE IVP PRN (15:21)
[2022-09-28] MEDS ORDERED: fentaNYL 100 MCG/2 ML VIAL IVP PRN (15:21)
[2022-09-28] MEDS ORDERED: miSOPROStoL 200 MCG TABLET PR PRN (15:21)
[2022-09-28] MEDS ORDERED: hydrALAZINE INJ 20 MG/ML VIAL IVP PRN ×2 (15:21)
[2022-09-28] MEDS ORDERED: NIFEdipine 10 MG CAPSULE PO PRN (15:21)
[2022-09-28] MEDS ORDERED: LABETALOL 20 MG/4 ML SYRINGE IVP PRN ×3 (15:21)
[2022-09-28] MEDS ORDERED: TERBUTALINE 1 MG/ML VIAL SUBQ PRN (15:21)
[2022-09-28] MEDS ORDERED: LACTATED RINGERS 1,000 ML IV PRN (15:21)
[2022-09-28] MEDS ORDERED: TRANEXAMIC ACID IN NACL 1,000 MG/100 ML BAG IV PRN (15:21)
[2022-09-28] MEDS ORDERED: OXYTOCIN 10 UNIT/ML VIAL IM PRN (15:21)
[2022-09-28] MEDS ORDERED: lidocaine 1% 20 ML MDV ID PRN (15:21)
[2022-09-28] MEDS ORDERED: CARBOPROST TROMETHAMINE 250 MCG/ML AMP IM PRN (15:21)
[2022-09-28] MEDS ORDERED: METHYLERGONOVINE 0.2 MG/ML VIAL IM PRN (15:21)
[2022-09-28] MEDS: LACTATED RINGERS 1,000 ML IV SCH (16:00)
[2022-09-28 16:02] LABS: BASOPHILS % (AUTO) 0.4 %; EOSINOPHILS % (AUTO) 0.3 %; HCT - HEMATOCRIT 36.7 % (37.0-47.0); LYMPHOCYTES # (AUTO) 1.5 10^3/uL (1.5-3.5); LYMPHOCYTES % (AUTO) 16.8 %; MEAN CORPUSCULAR HGB CONC 32.7 g/dL (32.0-36.0); MEAN CORPUSCULAR VOLUME 88.6 fL (81.0-99.0); MEAN PLATELET VOLUME 10.7 fL (7.9-10.8); MONOCYTES # (AUTO) 0.7 10^3/uL (0.0-1.0); MONOCYTES % (AUTO) 7.3 %; NEUTROPHILS # (AUTO) 6.8 10^3/uL (1.5-6.6); NEUTROPHILS % (AUTO) 74.6 %; PLT - PLATELET COUNT 166 10^3/uL (130-450); RED BLOOD COUNT 4.14 10^6/uL (4.20-5.40); RED CELL DISTRIBUTION WIDTH 14.2 % (12.0-15.0); WHITE BLOOD COUNT 9.1 x10^3/uL (4.8-10.8)
--- NOTE | 2022-09-28 16:29 | HISTORY & PHYSICAL EXAMINATION ---
Admit History - Visit Reason Visit Reason: Contractions - : 8 Parity: 4 Premature: 0 Ectopic: 0 : 4 Care: positive: [facility] Risk/History: positive: None Complications This : positive: None Smoking Status: Never smoker - Mother's Labs Mother's Blood Type: positive: B Mother's RH: positive: Positive GBS: positive: Group B Step Negative Rubella Status: positive: Immune - HPI Diagnosis/Indication for NST: Other - NST Procedure NST Procedure Start Time 15:35 Stop Time 16:05 - Results and Plan Plan: NST Reactive. FHR baseline 140s, moderate variability, + accels, no decels Contractions palpate moderate to firm every 2-4 minutes with soft resting tone. Meds/Allgy - Allergies Allergies/Adverse Reactions: Allergies Allergy/AdvReac Type Severity Reaction Status Date / Time No Known Drug Allergies Allergy Verified 05/24/18 06:18 Review of Systems - Constitutional Constitutional: denies: Fatigue, Fever, Chills, Malaise - Eyes Eyes: denies: Blurred vision, Spots in vision, Dipolpia - Cardiovascular Cariovascular: denies: Irregular heart rate, Palpitations, Chest pain, Edema - Respiratory Respiratory: denies: Cough, Wheezing, SOB at rest - Gastrointestinal Gastrointestinal: denies: Constipation, Diarrhea, Nausea, Vomiting - Genitourinary Genitourinary: denies: Dysuria - Integumentary Integumentary: denies: Rash, Pruritis - Neurological Neurological: denies: Headache - Hematologic/Lymphatic Hematologic/Lymphatic: denies: Anemia Physical - Abdominal Exam Contraction Frequency (min/apart): 2-4 Contraction Intensity: positive: Moderate to strong Uterine Resting Tone: positive: Soft - Monitoring Heart Rate Baseline: 140 Strip Review: positive: Category I - Presentation Presentation: positive: Vertex - Vaginal Exam Membranes: positive: Membranes intact Dilation (in cm): 5 Effacement (%): 70 Station: positive: -2 Cervical Position: positive: Posterior - Speculum Exam Speculum Exam Performed: positive: No Plan for Labor - Plan For Labor I expect patient to be DC'd or transferred within 96 hours.: Yes Plan for Labor: HPI: Radha is a 36yo @ 40.1wks gestation by 10.5wk U/S who presents to [facility] in active labor. Upon arrival cervix was 5/70/-2 and vertex with intact membranes. She requested and epidural for pain management and she was admitted to [facility] for expectant management of labor. [facility] the duration of her which has remained uncomplicated with the exception of mild anemia complicating for which she has been consistently taking oral iron for treatment. She is supported by her Piter today. 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 SAB x3. Last pap 02/2020, No hx of abnormals. Medical Hx: no significant Surgical Hx: D&C -2016; Abdominal surgery at age 6mo Family Hx: PGM-breast cancer Meds: PNV; FeSO4 Allergies: None known Social: , lives with Piter. 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 No tobacco, ETOH or recreational drug use. Caffeine intake -none. course: B positive, antibody negative Rubella immune, varicella immune Hep B neg, Hep C neg RPR non-reactive, HIV nonreactive Initial U/S @ 10.5wks dates Genetic screening - declined Influenza vaccine - declined Tdap vaccine - declined Covid-19 vaccine - declined FAS WNL. Anterior placenta, no previa. Size c/w dating (EFW 53%tile). 3VC. Glucola 103 GBS negative Physical exam: Normocephalic, atraumatic Heart RRR w/o M/G/R Lungs CTAB Abdomen gravid, soft, nontender EFW 3400g FHR baseline 140s, moderate variability, + accels, no decels Contractions palpate moderate to strong every 2-4 minutes with soft resting tone SVE 5/70/-2, posterior. Vertex. Bulging BOW. Bilateral LE's no edema Mood is good Assessment: 26yo @ 40.1wks gestation by 10.5wk U/S Active labor FHR Category I GBS negative Plan: Admit to [facility] for expectant management of labor. Anesthesia notified to present for placement of epidural for pain management per pt request. Continuous monitoring. Encouraged rotation in bed on peanut ball. AROM with next SVE. Anticipate NSVB.
[2022-09-28] MEDS ORDERED: ePHEDrine 50 MG/ML VIAL IVP PRN (16:42)
[2022-09-28] MEDS ORDERED: ROPIVACAINE 0.2% 200 MG/100 ML BAG EP PRN (16:42)
[2022-09-28] MEDS ORDERED: NALOXONE 0.4 MG/ML VIAL IVP PRN (16:42)
--- NOTE | 2022-09-28 16:42 | ANESTHESIA ---
Pre-Anesthesia VS, & Labs - Diagnosis active labor - Procedure vaginal delivery Height: 5 ft 4 in - NPO Last Fluid Intake: clear liquids - Is Patient ?: Yes - Lab Results Current Lab Results: Laboratory Tests 09/28/22 15:47: WBC 9.1, RBC 4.14 L, Hgb 12.0, Hct 36.7 L, MCV 88.6, MCH 29.0, MCHC 32.7, RDW 14.2, Plt Count 166, MPV 10.7, Neut # (Auto) 6.8 H, Lymph # (Auto) 1.5, [place] # (Auto) 0.7, Eos # (Auto) 0.0, Baso # (Auto) 0.0, Absolute Nuc leated RBC 0.00, Nucleated RBC % 0.0 Fish Bones: 09/28/22 15:47 Home Medications and Allergies Active Medications Carboprost Tromethamine (Carboprost Tromethamine 250 Mcg/Ml Amp) 250 mcg IM .ONCE PRN PRN Reason: Hemorrhage Fentanyl (Fentanyl 100 Mcg/2 Ml Vial) 50 mcg IVP Q1H PRN PRN Reason: Severe Pain (score 7-10) Hydralazine HCl (Hydralazine Inj 20 Mg/Ml Vial) 5 - 10 mg IVP Q20M PRN; Protocol PRN Reason: SBP> or= 160 OR DBP> or= 110 Hydralazine HCl (Hydralazine Inj 20 Mg/Ml Vial) 10 mg IVP .ONCE PRN; Protocol PRN Reason: SBP> or= 160 OR DBP> or= 110 Lactated Ringer's (Lr) 500 mls @ 999 mls/hr IV PRN PRN PRN Reason: PER PHYSICIAN ORDER Oxytocin/Sodium Chloride (Pitocin/Sodium Chloride) 500 mls @ 999 mls/hr IV PRN PRN; Protocol PRN Reason: POST- HEMORR PREVENTION Tranexamic Acid (Tranexamic 1,000 Mg/100ml-Nacl) 1,000 mg in 100 mls @ 600 mls/hr IV Q30M PRN PRN Reason: EBL >1200mL and within 3hr Lactated Ringer's (Lr) 1,000 mls @ 125 mls/hr IV .Q8H SUSAN Labetalol HCl (Labetalol 20 Mg/4 Ml Syringe) 20 - 80 mg IVP Q10M PRN; Protocol PRN Reason: SBP> or= 160 OR DBP> or= 110 Labetalol HCl (Labetalol 20 Mg/4 Ml Syringe) 20 mg IVP .ONCE PRN; Protocol PRN Reason: SBP> or= 160 OR DBP> or= 110 Labetalol HCl (Labetalol 20 Mg/4 Ml Syringe) 20 - 40 mg IVP Q10M PRN; Protocol PRN Reason: SBP> or= 160 OR DBP> or= 110 Lidocaine HCl (Lidocaine 1% 20 Ml Mdv) 20 ml ID .ONCE PRN PRN Reason: PERINEAL REPAIR Stop: 10/01/22 15:21 Methylergonovine Maleate (Methylergonovine 0.2 Mg/Ml Vial) 0.2 mg IM .ONCE PRN PRN Reason: Hemorrhage Misoprostol (Misoprostol 200 Mcg Tablet) 600 mcg BC .ONCE PRN PRN Reason: Hemorrhage Misoprostol (Misoprostol 200 Mcg Tablet) 800 mcg [place] .ONCE PRN PRN Reason: Hemorrhage Nifedipine (Nifedipine 10 Mg Capsule) 10 - 20 mg PO Q20M PRN; Protocol PRN Reason: SBP> or= 160 OR DBP> or= 110 Oxytocin (Oxytocin 10 Unit/Ml Vial) 10 unit IM .ONCE PRN PRN Reason: Step One if no IV access. Sodium Chloride (Sodium Chloride Flush 0.9% 10 Ml Syringe) 10 ml IVP PRN PRN PRN Reason: NEEDED PER PROVIDER ORDERS Sodium Chloride (Sodium Chloride Flush 0.9% 10 Ml Syringe) 10 ml IVP Q8H SUSAN Terbutaline Sulfate (Terbutaline 1 Mg/Ml Vial) 0.25 mg SUBQ .ONCE PRN PRN Reason: Tachystole Allergies/Adverse Reactions: Allergies Allergy/AdvReac Type Severity Reaction Status Date / Time No Known Drug Allergies Allergy Verified 05/24/18 06:18 Anes History & Medical History - Anesthetic History Anesthesia Complications: reports: No previous complications - Medical History Cardiovascular: reports: None Pulmonary: reports: None Gastrointestinal: reports: None Urinary: reports: None Neuro: reports: None Musculoskeletal: reports: None Endocrine/Autoimmune: reports: None Blood Disorders: reports: None Skin: reports: None Smoking Status: Never smoker - Surgical History General: reports: Other (bowel repair as an infant) Urologic: reports: Kidney stents (ureteral stents during first ) - Obstetrical History : 8 Parity: 4 Events: reports: None Complications: reports: None Exam General: Alert, Oriented x3, Cooperative, No acute distress Dental: WNL Mouth Openin Fingerbreadth Neck Mobility: Normal Mallampati classification: II Thyromental Distance: 4-6 cm Mental/Cognitive Status: Alert/Oriented X3, Normal for patient Plan Anesthesia Type: Epidural Consent for Procedure(s) Verified and Reviewed: Yes Code Status: Attempt Resuscitation ASA classification: 2-Mild systemic disease Is this case an emergency?: No
[2022-09-28] MEDS: SODIUM CHLORIDE FLUSH 0.9% 10 ML SYRINGE IVP SCH (17:12)
[2022-09-28] MEDS ORDERED: WITCH HAZEL/GLYCERIN 1 PAD TOP PRN (20:42)
[2022-09-28] MEDS ORDERED: HYDROCORTISONE 1% CREAM 28 GM TUBE PR PRN (20:42)
[2022-09-28] MEDS ORDERED: oxyCODONE 5 MG TABLET PO PRN (20:42)
--- NOTE | 2022-09-28 20:58 | DELIVERY NOTE ---
Delivery Note - Labor Labor: positive: Augmented by ARM - Infant Delivery Method Delivery Method: positive: Spontaneous vaginal delivery - Presentation Presentation: positive: Vertex, KAILEY - left occiput anterior - Nuchal Cord Nuchal Cord: positive: None - Amniotic Fluid Description Amniotic Fluid Description: positive: Clear - Episiotomy Type Episiotomy Type: positive: None - Laceration Laceration: positive: 2nd degree, Perineal - Suture Suture Type: positive: Vicryl Suture Size: positive: 2-0 - Delivery Outcome Delivery Outcome: positive: Livebirth - Ada : positive: Placed in direct skin contact with mother, Stimulated, Warmed, [place] used Ada sex: positive: Male - Cord Cord: positive: 3 vessels - Placenta Placenta: positive: Intact, Spontaneous - Estimated Blood Loss Estimated Blood Loss (in cc): 250 - Post Delivery Events Post Delivery Events: positive: No post delivery events - Delivery Comments (Free Text/Narrative) Delivery Comments (Free Text/Narrative): Labor: This 36yo @ 40.1wks gestation by 10.5wk U/S presented on 09/28/2022 with c/o contractions. Cervix was 5/70/-2, posterior and vertex with intact membranes. She was admitted to [facility] for expectant management. Epidural was placed per maternal request. FHR pattern demonstrated a category I pattern throughout labor. Normal labor course. AROM occurred at 1644 for augmentation of labor and was noted to be a moderate amount of clear fluid. Pt progressed spontaneously to c/c/+1 @ 1951 with onset of active pushing at 2003. : Normal SVB of viable male on 09/28/2022 @ 2009. No nuchal cord. The was placed on maternal abdomen, stimulated, dried, and placed skin to skin. 's were 9/9 at 1 and 5 minutes respectively. Pitocin administered via IV for hemostasis. The umbilical cord was allowed to stop pulsating at which time it was doubly clamped by CNM and cut by FOB. Cord blood was obtained. 3VC. Fundal massage and gentle cord traction applied for active management of the third stage. Placenta delivered spontaneously and intact at 2014. EBL 250mL. Fourth stage: Uterine fundus firm and there is no excessive bleeding. The perineum, vagina, and cervix were inspected and found to have a 2nd degree perineal laceration which was repaired using a 2-[address]-1 needle, in standard fashion and under sterile conditions. Vaginal and rectal examination following repair was performed. Tissues well approximated. initiated. Family bonding well. Both mother and baby were left in stable condition.
[2022-09-28] MEDS: IBUPROFEN 800 MG TABLET PO SCH (21:15)
[2022-09-28] MEDS: ACETAMINOPHEN 500 MG TABLET PO SCH (21:15)
[2022-09-28] MEDS: DOCUSATE SODIUM 100 MG CAPSULE PO SCH (21:15)
[2022-09-29] MEDS: IBUPROFEN 800 MG TABLET PO SCH ×3 (03:34→17:41)
[2022-09-29] MEDS: ACETAMINOPHEN 500 MG TABLET PO SCH ×2 (05:18→14:06)
[2022-09-29] MEDS: SODIUM CHLORIDE FLUSH 0.9% 10 ML SYRINGE IVP SCH ×2 (10:21→17:42)
[2022-09-29] MEDS: LACTATED RINGERS 1,000 ML IV SCH ×2 (10:21→17:42)
[2022-09-29] MEDS: DOCUSATE SODIUM 100 MG CAPSULE PO SCH (10:26)
[2022-09-29 14:10] VITALS: BP 108/58
--- NOTE | 2022-09-29 15:39 | Discharge Plan ---
Discharge Plan Problem Reviewed?: Yes Disposition: Home, Self Care Condition: Good Diet: Regular Activity Restrictions: No Restrictions Shower Restrictions: No Driving Restrictions: No Weight Bearing: Full Weight Instruction Topics: Vaginal After No Smoking: If you smoke, Please STOP! Call for help. Follow-up with: Marilyn Murillo CNM, ARNP [Primary Care Provider] - 2 Weeks (2 week phone call with Marilyn Murillo CNM/BANDAR on SaturdayOctober 12 @ 2:30pm.)
--- NOTE | 2022-09-29 15:53 | DISCHARGE SUMMARY ---
Discharge Summary Condition at Discharge: Good Discharge Disposition: 01 Home, Self Care - HOSPITAL COURSE Hospital Course: Date of Admission: 09/28/2022 Date of Discharge: 09/29/2022 Diagnosis on Admission: 1. 26yo @ 40.1wks gestation by 10.5wk U/S 2. Active labor 3. FHR Category I 4. GBS negative Diagnosis on Discharge: 1. 26yo PPD#1 s/p TSVB viable male infant 2. 2nd degree perineal laceration intact 3. 4. Normal recovery Brief History: She is a patient of [facility] who presented on 09/28/2022 in active labor. Cervix was 5/70/-2 and vertex with intact membranes. She received an epidural per her request for pain management. AROM occurred for augmentation of labor and was noted to be a moderate amount of clear fluid. She progressed to c/c/+1 to spontaneously deliver a viable male on 09/28/2022 @ 2009 over 2nd degree perineal laceration. EBL 250mL. Apgars were 9/9 at 1 and 5 minutes respectively. She has been doing well in her course. She is ambulating and tolerating a regular diet. She is urinating without difficulty and lochia is normal. Her pain well controlled with oral medications. She has not yet had a bowel movement but has been taking her stool softening. She is without difficulty and she is bonding well with her baby. She will be discharged home today on day #1 with instructions to continue taking her vitamin while and to continue taking ibuprofen and tylenol over the counter as needed for pain management. She has also been encouraged to continue taking over the counter stool softener. She intends to follow up with myself at [facility] [place] in 2 weeks for routine visit or sooner if needed. She has been given precautions to call if she has any worsening fevers, chills, abdominal pain, increased vaginal bleeding or foul smelling vaginal lochia. Physical Exam: Normocephalic, atraumatic. Heart RRR w/o M/G/R, lungs CTAB, abdomen soft and nontender with fundus firm at U, perineum intact, light lochia rubra, perineum intact, repair with moderate edema, bilateral LE's no edema, mood is good. - ALLERGIES Allergies/Adverse Reactions: Allergies Allergy/AdvReac Type Severity Reaction Status Date / Time No Known Drug Allergies Allergy Verified 05/24/18 06:18 - LABS Result Diagrams: 09/28/22 15:47
--- NOTE | 2022-09-30 09:29 | Labor Flowsheet ---
Labor Flowsheet Datetime Report Generated by CPN: 09/30/2022 09:29 Datetime: 09/29/2022 13:57 VITAL SIGNS NBP Sys/Olivia/Mean (mmHg): 108 : 58 : 69 Pulse: 69 Datetime: 09/28/2022 22:20 Stage of : Recovery Datetime: 09/28/2022 22:18 SpO2 (%): 99 Datetime: 09/28/2022 21:42 Respirations: 16 Datetime: 09/28/2022 21:22 PAIN Pain Scale: 0 Datetime: 09/28/2022 21:21 Temperature (C): 36.8 Datetime: 09/28/2022 20:33 MEDICATIONS Pitocin (milliunits): Decreased to @ 50 Medication Comments: Post delivery pitocin decreased Datetime: 09/28/2022 20:30 LaborFlag: Labor Datetime: 09/28/2022 20:27 Membranes Ruptured Date/Time: 09/28/2022 16:44 Datetime: 09/28/2022 20:03 Patient Care Comments: Gibson Catheter removed, 400 ml urine STAGE 2 Pushing: Coached on Pushing Pushing Position: Pushing with Contractions; Pushing Lithotomy Pushing Progress: Descent with Pushing Datetime: 09/28/2022 20:00 UTERINE ACTIVITY Monitor Mode: External Frequency (min): 2-3.5 Quality: Strong Duration (sec): 80-90 Pattern: Normal: <= 5 Contractions in 10 Minutes Resting Tone (Palpate): Relaxed ASSESSMENT A Monitor Mode: External US FHR Baseline Rate : 115 Variability: Moderate 6-25 bpm Accelerations: 15X15 Decelerations: Early; Late Category: Category II PATIENT CARE Oxygen Method: Room Air Datetime: 09/28/2022 19:52 COMMUNICATION Communication: Call/Page Placed to Provider Notification Reason: Labor Status Communication Comments: SVE reported to Lidia CNM, provider to attend delivery Datetime: 09/28/2022 19:51 Provider Notified (Name): A Lidia CNM Datetime: 09/28/2022 19:50 VAGINAL EXAM Dilatation (cm): 10.0 Effacement (%): 100 Station: 1 Exam by: K Deppe RN Datetime: 09/28/2022 19:19 Pain Presence: None/Denies Pain Type: N/A Pain Assessment Comments: Epidural inplace and running, pt denies pain or discomfort MATERNAL ASSESSMENT Level of Consciousness: Alert DTR's/Clonus: DTRs 2+ Headache: Denies Breath Sounds, Left: Clear and Equal Breath Sounds, Right: Clear and Equal Nausea/Vomiting: Denies RUQ Epigastric Pain: Denies Patient Position/Activity: High Fowlers ANESTHESIA Anesthesia Plans: Epidural TEACHING Instructional Method: Verbal; Patient Instructed; Family/Support Person Instructed Plan of Care: Plan of Care Discussed; Labor Unit Routine: Call Bowers; Monitoring; Safety/Fall Risk Prevention Labor/Induction: Labor Stages Datetime: 09/28/2022 19:15 Monitor Interventions for UA: [place] Adjusted Contraction Comments: Unable to see all contractions on monitor, adjsuted toco Datetime: 09/28/2022 18:59 Comments: one late Datetime: 09/28/2022 16:51 I/O Interventions: Gibson Cath Inserted Datetime: 09/28/2022 16:44 Membrane Status: Ruptured Membranes Rupture Method: Artificial Amniotic Fluid Color: Clear Amniotic Fluid Amount: Moderate Amniotic Fluid Odor: Normal Vaginal Exam Comments: Provider ruptured membranes Datetime: 09/28/2022 16:34 Epidural Procedure: Completed Datetime: 09/28/2022 16:20 Anesthesia Comments: Lidocain
== END 2022-09-29 19:05 | disposition home or self-care (01) | DRG 807 ==
LOC: WFO 15:15 → FBP 15:16 → WFO 15:20 → FBP 15:21
PROVIDERS: ADMIT Nurse Practitioner Obstetrics & Gynecology; ATTEND Nurse Practitioner Obstetrics & Gynecology
PROC: 10E0XZZ Delivery of Products of Conception, External Approach (ICD-10-PCS; principal; 2022-09-28)
PROC: 0KQM0ZZ Repair Perineum Muscle, Open Approach (ICD-10-PCS; 2022-09-28)
PROC: 10907ZC Drainage of Amniotic Fluid, Therapeutic from Products of Conception, Via Natural or Artificial Opening (ICD-10-PCS; 2022-09-28)
DX: O70.1 Second degree perineal laceration during delivery (principal); Z37.0 Single live birth; Z3A.40 40 weeks gestation of pregnancy; O48.0 Post-term pregnancy
CPT/HCPCS: 85025; 86850; 86900; 86901; A9270; J7120

== ENCOUNTER 2023-04-15 08:22 | Emergency (ER) | payer BC ==
--- NOTE | 2023-04-15 09:28 | ED Physician Documentation ---
PD HPI OPHTHO - Stated complaint Stated Complaint: RT EYE SCRATCH - Chief complaint Chief Complaint: Heent - History obtained from History obtained from: Patient - History of Present Illness Timing - onset: Last night (her 6 month old child reached quickly toward her and scratched right eyeball. Pain overnight and continued to this moring.) Timing - details: Abrupt onset, Still present Location: Right Quality / character: Sharp Associated symptoms: No: Redness, Swelling, Discharge Contributing factors: No: Wears contacts Similar symptoms before: Has not had sx before Review of Systems Eyes: denies: Loss of vision, Decreased vision, Photophobia PD PAST MEDICAL HISTORY - Past Medical History Cardiovascular: None Respiratory: None Neuro: None Endocrine/Autoimmune: None GI: None : None Psych: None Musculoskeletal: None Derm: None - Past Surgical History Past Surgical History: Yes General: Other - Present Medications Home Medications: Ambulatory Orders Medication Instructions Recorded Confirmed No Known Home Medications 04/15/23 04/15/23 - Allergies Allergies/Adverse Reactions: Allergies Allergy/AdvReac Type Severity Reaction Status Date / Time No Known Drug Allergies Allergy Verified 04/15/23 08:32 - Social History Does the pt smoke?: No Smoking Status: Never smoker Does the pt drink ETOH?: No Does the pt have substance abuse?: No - Immunizations Immunizations are current?: No Immunizations: Other immun not current PD ED PE NORMAL - Vitals Vital signs reviewed: Yes - General General: Alert and oriented X 3, Well developed/nourished - HEENT HEENT: PERRL, EOMI (without pain) PD ED PE EXPANDED - Eyes Eyes: Corneal abrasion (small linear not deep abrasion central eye anteriorly. Anterior chamber normal. ), Fluorescein uptake Results - Vitals Vitals: Vital Signs - 24 hr 04/15/23 10:11 Temperature 36.2 C L Heart Rate 70 Respiratory 16 Rate Blood Pressure 104/75 O2 Saturation 99 Oxygen O2 Source Room air PD Medical Decision Making - ED course Complexity details: considered differential (corneal abrasion, can assess for depth on exam. No matting/crusting. Eye painful. Improved with numbing eye drops. ), d/w patient, d/w family (spouse) ED course: exam shows simple corneal abrasion. No signs of infection. [place] a lot better with proparacaine. Can Rx numbing drops to have her use PRN, and disucussed with her/ precautions of avoiding outdoors, dust, etc so as to not have inapparent new injury and not use more than 2 days. Shoould be better in that timeframe. There had been previous controversy in general about use of numbning eye drops for abrasions, but studies several have shown safety with its use and [facility] has recent treatment guideline advocating use of numbing drops in cases of corneal abrasions. I conveyed this controvery/discussion to patient in case she hears other older dogma information. Departure - Departure Disposition: 01 Home, Self Care Clinical Impression: Corneal abrasion Qualifiers: Encounter type: initial encounter Laterality: right Qualified Code(s): S05.01XA - Injury of conjunctiva and corneal abrasion without foreign body, right eye, initial encounter Condition: Stable Record reviewed to determine appropriate education?: Yes Instructions: ED Eye Injury Corneal Abrasion Comments: You do have a single abrasion in the front part of the eye. It does not appear to deep. It should heal up on its own over 2 to 3 days. Lubricating eyedrops or ointment can be useful to reduce the amount of friction or rubbing of the eyelid over it and decrease symptoms. Tylenol or ibuprofen if needed. In the short-term, numbing eyedrops are's safe to use provided you are out of the wind and dust and not able to get other particles or such in your eye. Recheck if signs of infection. Forms: PCP List Discharge Date/Time: 04/15/23 10:12
[2023-04-15 10:13] VITALS: BP 104/75; O2SAT 99
== END 2023-04-15 10:12 | disposition home or self-care (01) ==
LOC: ED 08:22
DX: S05.01XA Injury of conjunctiva and corneal abrasion without foreign body, right eye, initial encounter (principal); W50.0XXA Accidental hit or strike by another person, initial encounter
CPT/HCPCS: 99281; 99283